=== PATIENT | male | born 1990 | race Caucasian/White ===

== ENCOUNTER → 2020-08-02 13:09 | Outpatient (BNVA) | payer MEDICAID, SELFPAY | PROVIDERS: PCP Internal Medicine; Referring Provider Internal Medicine; Visit Provider Nurse Practitioner Psychiatric/Mental Health | DX: F11.20 Opioid dependence, uncomplicated (principal); Z51.81 Encounter for therapeutic drug level monitoring | CPT/HCPCS: 80305; 99213 ==

== ENCOUNTER → 2020-08-23 13:29 | Outpatient (BNVA) | payer MEDICAID, SELFPAY | PROVIDERS: Visit Provider Nurse Practitioner Psychiatric/Mental Health | DX: F11.20 Opioid dependence, uncomplicated (principal) | CPT/HCPCS: 99211 ==

== ENCOUNTER → 2020-09-14 13:37 | Outpatient (BNVA) | payer MEDICAID, SELFPAY | PROVIDERS: Visit Provider Nurse Practitioner Psychiatric/Mental Health | DX: Z13.89 Encounter for screening for other disorder (principal) | CPT/HCPCS: 99211 ==

== ENCOUNTER → 2020-10-04 16:19 | Outpatient (BNVA) | payer MEDICAID, SELFPAY | PROVIDERS: Visit Provider Nurse Practitioner Psychiatric/Mental Health | DX: Z76.89 Persons encountering health services in other specified circumstances (principal) ==

== ENCOUNTER → 2020-10-25 13:32 | Outpatient (BNVA) | payer MEDICAID, SELFPAY | PROVIDERS: Visit Provider Nurse Practitioner Psychiatric/Mental Health | DX: Z76.89 Persons encountering health services in other specified circumstances (principal) ==

== ENCOUNTER → 2020-11-15 13:05 | Outpatient (BNVA) | payer MEDICAID, SELFPAY | PROVIDERS: Visit Provider Nurse Practitioner Psychiatric/Mental Health ==

== ENCOUNTER → 2020-11-22 13:18 | Outpatient (BNVA) | payer MEDICAID, SELFPAY | PROVIDERS: PCP Physician Assistant Medical; Visit Provider Nurse Practitioner Psychiatric/Mental Health | DX: F11.99 Opioid use, unspecified with unspecified opioid-induced disorder (principal) | CPT/HCPCS: 80305; 99212 ==

== ENCOUNTER → 2020-12-06 13:19 | Outpatient (BNVA) | payer MEDICAID, SELFPAY | PROVIDERS: Visit Provider Nurse Practitioner Psychiatric/Mental Health | DX: Z51.81 Encounter for therapeutic drug level monitoring (principal) | CPT/HCPCS: 80305; 99211 ==

== ENCOUNTER → 2020-12-20 13:35 | Outpatient (BNVA) | payer MEDICAID, SELFPAY | PROVIDERS: Visit Provider Nurse Practitioner Psychiatric/Mental Health | DX: Z51.81 Encounter for therapeutic drug level monitoring (principal) | CPT/HCPCS: 80305; 99211 ==

== ENCOUNTER → 2021-01-03 13:01 | Outpatient (BNVA) | payer MEDICAID, SELFPAY | PROVIDERS: Visit Provider Nurse Practitioner Psychiatric/Mental Health | DX: Z51.81 Encounter for therapeutic drug level monitoring (principal) ==

== ENCOUNTER → 2021-01-24 13:19 | Outpatient (BNVA) | payer MEDICAID, SELFPAY | PROVIDERS: Visit Provider Nurse Practitioner Psychiatric/Mental Health | DX: Z51.81 Encounter for therapeutic drug level monitoring (principal); F11.99 Opioid use, unspecified with unspecified opioid-induced disorder ==

== ENCOUNTER → 2021-02-13 15:20 | Outpatient (BNVA) | payer MEDICAID, SELFPAY | PROVIDERS: Visit Provider Nurse Practitioner Psychiatric/Mental Health | DX: Z51.81 Encounter for therapeutic drug level monitoring (principal) | CPT/HCPCS: 80305; 99211 ==

== ENCOUNTER → 2021-03-06 15:17 | Outpatient (BNVA) | payer MEDICAID, SELFPAY | PROVIDERS: Visit Provider Nurse Practitioner Psychiatric/Mental Health | DX: F11.99 Opioid use, unspecified with unspecified opioid-induced disorder (principal) | CPT/HCPCS: 80305; 99211 ==

== ENCOUNTER → 2021-03-28 13:46 | Outpatient (BNVA) | payer MEDICAID, SELFPAY | PROVIDERS: Visit Provider Nurse Practitioner Psychiatric/Mental Health ==

== ENCOUNTER → 2021-04-18 12:27 | Outpatient (BNVA) | payer MEDICAID, SELFPAY | PROVIDERS: Visit Provider Nurse Practitioner Psychiatric/Mental Health | DX: F11.99 Opioid use, unspecified with unspecified opioid-induced disorder (principal) | CPT/HCPCS: 99211 ==

== ENCOUNTER → 2021-05-09 13:31 | Outpatient (BNVA) | payer MEDICAID, SELFPAY | PROVIDERS: Visit Provider Nurse Practitioner Psychiatric/Mental Health | DX: F11.99 Opioid use, unspecified with unspecified opioid-induced disorder (principal); Z51.81 Encounter for therapeutic drug level monitoring | CPT/HCPCS: 80305; 99212 ==

== ENCOUNTER → 2021-06-06 13:29 | Outpatient (BNVA) | payer MEDICAID, SELFPAY | PROVIDERS: Visit Provider Nurse Practitioner Psychiatric/Mental Health | DX: Z51.81 Encounter for therapeutic drug level monitoring (principal); F11.90 Opioid use, unspecified, uncomplicated; Z79.899 Other long term (current) drug therapy | CPT/HCPCS: 80305; 99212 ==

== ENCOUNTER → 2021-06-27 13:42 | Outpatient (BNVA) | payer MEDICAID, SELFPAY | PROVIDERS: Visit Provider Nurse Practitioner Psychiatric/Mental Health | DX: Z51.81 Encounter for therapeutic drug level monitoring (principal); F11.99 Opioid use, unspecified with unspecified opioid-induced disorder | CPT/HCPCS: 80305; 99212 ==

== ENCOUNTER 2021-07-11 15:26 | Outpatient (REF) | payer MEDICAID, SELFPAY ==
[2021-07-11 16:33] LABS: Alanine Aminotransferase 17 U/L (0-40); Albumin Level 4.5 g/dL (3.5-5.0); Alkaline Phosphatase 126 U/L (39-117); Aspartate Amino Transferase 18 U/L (5-37); Bilirubin Direct 0.2 mg/dL (0.0-0.5); Bilirubin Total 0.6 mg/dL (0.0-1.0); Total Protein 6.6 g/dL (6.5-8.0)
== END 2021-07-11 15:27 | disposition home or self-care (01) ==
LOC: HO.LAB 15:26
PROVIDERS: Visit Provider Nurse Practitioner Psychiatric/Mental Health
DX: Z79.899 Other long term (current) drug therapy (principal)
CPT/HCPCS: 36415; 80076

== ENCOUNTER → 2021-07-18 13:46 | Outpatient (BNVA) | payer MEDICAID, SELFPAY | PROVIDERS: Visit Provider Nurse Practitioner Psychiatric/Mental Health | DX: Z51.81 Encounter for therapeutic drug level monitoring (principal); F11.90 Opioid use, unspecified, uncomplicated | CPT/HCPCS: 80305; 99212 ==

== ENCOUNTER → 2021-08-15 13:54 | Outpatient (BNVA) | payer MEDICAID, SELFPAY | PROVIDERS: Visit Provider Nurse Practitioner Psychiatric/Mental Health | DX: F11.20 Opioid dependence, uncomplicated (principal); Z51.81 Encounter for therapeutic drug level monitoring; Z79.899 Other long term (current) drug therapy | CPT/HCPCS: 80305; 99212 ==

== ENCOUNTER → 2021-08-22 14:58 | Outpatient (BNVA) | payer MEDICAID, SELFPAY | PROVIDERS: Visit Provider Nurse Practitioner Psychiatric/Mental Health | DX: F11.20 Opioid dependence, uncomplicated (principal); Z51.81 Encounter for therapeutic drug level monitoring; Z79.899 Other long term (current) drug therapy | CPT/HCPCS: 80305; 99212 ==

== ENCOUNTER → 2021-08-29 14:48 | Outpatient (BNVA) | payer MEDICAID, SELFPAY | PROVIDERS: Visit Provider Nurse Practitioner Psychiatric/Mental Health | DX: Z51.81 Encounter for therapeutic drug level monitoring (principal); F11.90 Opioid use, unspecified, uncomplicated | CPT/HCPCS: 80305; 99212 ==

== ENCOUNTER → 2021-09-05 15:34 | Outpatient (BNVA) | payer MEDICAID, SELFPAY | PROVIDERS: Visit Provider Nurse Practitioner Psychiatric/Mental Health | DX: Z51.81 Encounter for therapeutic drug level monitoring (principal); F11.90 Opioid use, unspecified, uncomplicated | CPT/HCPCS: 80305; 99212 ==

== ENCOUNTER → 2021-10-03 15:46 | Outpatient (BNVA) | payer MEDICAID, SELFPAY | PROVIDERS: Visit Provider Nurse Practitioner Psychiatric/Mental Health | DX: Z51.81 Encounter for therapeutic drug level monitoring (principal); F11.20 Opioid dependence, uncomplicated | CPT/HCPCS: 80305; 99212 ==

== ENCOUNTER → 2021-11-28 14:57 | Outpatient (BNVA) | payer MEDICAID, SELFPAY | PROVIDERS: Visit Provider Nurse Practitioner Psychiatric/Mental Health | DX: Z51.81 Encounter for therapeutic drug level monitoring (principal); F11.20 Opioid dependence, uncomplicated | CPT/HCPCS: 80305; 99211 ==

== ENCOUNTER → 2021-12-26 11:34 | Outpatient (BNVA) | payer MEDICAID, SELFPAY | PROVIDERS: Visit Provider Nurse Practitioner Psychiatric/Mental Health | DX: F11.99 Opioid use, unspecified with unspecified opioid-induced disorder (principal); F90.9 Attention-deficit hyperactivity disorder, unspecified type; Z87.891 Personal history of nicotine dependence | CPT/HCPCS: 80305; 99212 ==

== ENCOUNTER → 2022-01-23 11:30 | Outpatient (BNVA) | payer MEDICAID, SELFPAY | PROVIDERS: Visit Provider Nurse Practitioner Psychiatric/Mental Health | DX: F11.20 Opioid dependence, uncomplicated (principal); Z51.81 Encounter for therapeutic drug level monitoring; Z79.899 Other long term (current) drug therapy | CPT/HCPCS: 80305; 99212 ==

== ENCOUNTER → 2022-02-20 11:51 | Outpatient (BNVA) | payer MEDICAID, SELFPAY | PROVIDERS: Visit Provider Nurse Practitioner Psychiatric/Mental Health | DX: F11.20 Opioid dependence, uncomplicated (principal) | CPT/HCPCS: 99212 ==

== ENCOUNTER 2022-03-25 12:43 | Emergency (ER) | payer MEDICAID, SELFPAY ==
[2022-03-25 13:28] VITALS: BP 125/76; PULSE 80; RESP 16; TEMP 35.6; O2SAT 100; BMI 22.8
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
[2022-03-25] MEDS: Lidocaine HCl 2 % MPF 5 ML VIAL SUBCUT (14:18)
[2022-03-25] MEDS: Diphth,Pertus(ACell),Tet Adult 0.5 ML SYRINGE IM (14:18)
== END 2022-03-25 15:13 | disposition home or self-care (01) ==
PROVIDERS: Emergency Provider Emergency Medicine
DX: S81.811A Laceration without foreign body, right lower leg, initial encounter (principal); V18.0XXA Pedal cycle driver injured in noncollision transport accident in nontraffic accident, initial encounter; Y93.55 Activity, bike riding; Y92.414 Local residential or business street as the place of occurrence of the external cause; Y99.9 Unspecified external cause status
CPT/HCPCS: 12034; 90471; 90715; 99284

== ENCOUNTER 2022-03-27 16:03 | Emergency (ER) | payer MEDICAID, SELFPAY ==
[2022-03-27 16:15] VITALS: BP 128/87; PULSE 100; RESP 18; TEMP 36.8; O2SAT 97; BMI 22.8
[2022-03-27 20:07] VITALS: BP 100/63; PULSE 67; RESP 18; TEMP 37.2; O2SAT 98
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
== END 2022-03-27 22:48 | disposition home or self-care (01) ==
PROVIDERS: Emergency Provider Emergency Medicine; PCP Physician Assistant
DX: T81.33XA Disruption of traumatic injury wound repair, initial encounter (principal)
CPT/HCPCS: 12001; 99284

== ENCOUNTER 2022-04-03 12:32 | Emergency (ER) | payer MEDICAID, SELFPAY ==
[2022-04-03 12:35] VITALS: BP 125/85; PULSE 85; RESP 16; TEMP 36.6; O2SAT 98; BMI 22.1
--- NOTE | 2022-04-03 16:52 | ED_ITS ---
HPI - Wound/Laceration General Chief Complaint: Wound/Laceration Stated Complaint: stiches removed Time Seen by Provider: 04/03/22 14:04 Source: patient Mode of arrival: ambulatory Limitations: no limitations History of Present Illness HPI narrative: 31-year-old male presents for suture removal to the right lower extremity. Onset (ago): day(s) (9) Extremity Location: right: lower leg Place: outdoors Patient tetanus UTD: Yes Context: accidental Associated symptoms: none Related Data Home Medications Medication Instructions Recorded Confirmed dextroamphetamine-amphetamine ER 25 mg PO BID 06/06/21 06/27/21 25 mg 24hr capsule,extend release (Adderall XR) Previous Rx's Medication Instructions Recorded nicotine 14 mg/24 hr daily 1 patch transdermal DAILY #28 08/22/21 transdermal patch patches nicotine (polacrilex) 4 mg buccal 4 mg buccal Q4-8H PRN nicotine 10/03/21 lozenge cravings #96 ea buprenorphine 12 mg-naloxone 3 mg 1 film sublingual DAILY #21 ea 04/03/22 sublingual film (Suboxone) hydroxyzine HCl 50 mg tablet 50 mg PO BEDTIME #14 tabs 04/03/22 Allergies Allergy/AdvReac Type Severity Reaction Status Date / Time No Known Allergies Allergy Verified 01/23/22 11:32 [No Known Allergies*] Review of Systems Review of Systems: Constitutional: No Fever, No Chills ENT/Mouth: No Ear Pain, No Hoarseness, No sore throat Eyes: No Eye Pain, No Swelling, No Redness, No Foreign Body Cardiovascular: No Chest Pain, No SOB Respiratory: No Cough, No Dyspnea Gastrointestinal: No Nausea, No Vomiting, No Diarrhea, No abdominal Pain Genitourinary: No Dysuria, No Hematuria Musculoskeletal: positive joint pain, No Myalgias, No Joint Swelling Skin: Suture removal to right lower extremity, No rash Neuro: No Weakness, No Numbness, No Paresthesias, No Loss of Consciousness, No Dizziness, No Headache Psych: No Anxiety/Panic, No Depression Heme/Lymph: no easy bruising, no Lymphadenopathy Endocrine: No Polyuria, No Polydipsia Yes all other systems are reviewed and are negative PMFSH Past Medical History Attestation statement: The following information was validated with the patient. Source: old records reviewed Medical History ADHD Family History Family History Mother Diabetes Alcohol abuse Father Stroke Social History Social History Household Members Other:: partner Housing: Apartment Alcohol intake: never Patient Tobacco Use Status: Former Tobacco user Substance Use Type: Marijuana Advance Directives: No Advance Directives Information Provided: No Physical Exam Vital Signs: Vital Signs: Last Vital Signs Temp 98 F 04/03/22 12:35 Pulse 85 04/03/22 12:35 Resp 16 04/03/22 12:35 BP 125/85 04/03/22 12:35 Pulse Ox 98 04/03/22 12:35 O2 Del Method 04/03/22 12:35 BMI result Body Mass Index 22.1 Appearance: Alert. Oriented X3. No acute distress. Eyes: Pupils equal, round and reactive to light. ENT: Pharynx normal. Neck: Normal inspection. Neck supple. CVS: Normal heart rate and rhythm. Pulses normal. Respiratory: No respiratory distress. Breath sounds normal. Abdomen: Soft and nontender. Skin: Wound dehiscence to the lateral aspects of the laceration, 4 sutures removed from the well-approximated center of the laceration. No indication of infection. No erythema or warmth to touch. Skin warm and dry. Normal skin color. Normal skin turgor. Extremities: No lower extremity edema. Gait well-balanced and well coordinated. Neuro: No motor deficit. No sensory deficit. Cranial nerves 2-12 intact. Course Course Course Narrative: 31-year-old male presents for suture removal to right lower extremity. Wound dehiscence to the lateral aspects of the wound, patient did remove 5 sutures on his own, 4 sutures in the center. Center of the wound is well-approximated. No indication of infection, no erythema or purulent drainage from the site. Sutures removed without difficulty. Discharge instructions for mederma scar ointment and bacitracin as needed. Patient verbalized understanding of and agrees to plan of care to discharge home. Verbalized understanding of signs and symptoms indicating need for emergent intervention MDM - Wound/Laceration Differential Diagnosis Differential diagnosis: Likely laceration Medical Records Attestation: I reviewed the patient's medical records. Discharge Plan Discharge Clinical Impression: Visit for suture removal Patient Disposition: Home, Self-Care Instructions: Stitches Removal (ED) Additional Instructions: You were evaluated for suture removal. Sutures were removed without difficulty. You may consider using Mederma scar or ointment to reduce scarring. Thank you for choosing this emergency department for evaluation. Please f ollow-up with primary care physician as needed. Return to the emergency department for any new, concerning, or worsening symptoms. Prescriptions: No Action dextroamphetamine-amphetamine [Adderall XR] 25 mg capsule,extended release 24hr 25 mg PO BID nicotine 14 mg/24 hr patch 24 hour 1 patch transdermal DAILY Qty: 28 3RF nicotine (polacrilex) 4 mg lozenge 4 mg buccal Q4-8H PRN (Reason: nicotine cravings) Qty: 96 3RF buprenorphine-naloxone [Suboxone] 12-3 mg film 1 film sublingual DAILY Qty: 21 1RF hydroxyzine HCl 50 mg tablet 50 mg PO BEDTIME Qty: 14 0RF
== END 2022-04-03 17:24 | disposition home or self-care (01) ==
PROVIDERS: Emergency Provider Emergency Medicine; PCP Family Medicine
DX: Z48.02 Encounter for removal of sutures (principal); S81.811D Laceration without foreign body, right lower leg, subsequent encounter; W45.8XXD Other foreign body or object entering through skin, subsequent encounter
CPT/HCPCS: 80305; 99212; 99282; 99283

== ENCOUNTER → 2022-05-08 08:44 | Outpatient (BNVA) | payer MEDICAID, SELFPAY | PROVIDERS: PCP Family Medicine; Visit Provider Nurse Practitioner Psychiatric/Mental Health | DX: F11.20 Opioid dependence, uncomplicated (principal) | CPT/HCPCS: 99212 ==

== ENCOUNTER → 2022-05-15 11:55 | Outpatient (BNVA) | payer MEDICAID, SELFPAY | PROVIDERS: PCP Physician Assistant; Visit Provider Nurse Practitioner Psychiatric/Mental Health | DX: Z51.81 Encounter for therapeutic drug level monitoring (principal); F11.20 Opioid dependence, uncomplicated | CPT/HCPCS: 80305; 99212 ==

== ENCOUNTER → 2022-05-28 08:37 | Outpatient (BNVA) | payer MEDICAID, SELFPAY | PROVIDERS: PCP Physician Assistant; Visit Provider Nurse Practitioner Psychiatric/Mental Health | DX: F11.20 Opioid dependence, uncomplicated (principal); Z51.81 Encounter for therapeutic drug level monitoring; Z79.899 Other long term (current) drug therapy | CPT/HCPCS: 99212 ==

== ENCOUNTER → 2022-06-12 10:53 | Outpatient (BNVA) | payer MEDICAID, SELFPAY | PROVIDERS: PCP Physician Assistant; Visit Provider Nurse Practitioner Psychiatric/Mental Health | DX: F11.20 Opioid dependence, uncomplicated (principal) | CPT/HCPCS: 99212 ==

== ENCOUNTER → 2022-06-23 11:33 | Outpatient (BNVA) | payer MEDICAID, SELFPAY | PROVIDERS: PCP Physician Assistant; Visit Provider Nurse Practitioner Psychiatric/Mental Health | DX: Z51.81 Encounter for therapeutic drug level monitoring (principal); F11.20 Opioid dependence, uncomplicated | CPT/HCPCS: 80305; 99212 ==

== ENCOUNTER → 2022-07-03 11:03 | Outpatient (BNVA) | payer MEDICAID, SELFPAY | PROVIDERS: PCP Physician Assistant; Visit Provider Nurse Practitioner Psychiatric/Mental Health | DX: F11.20 Opioid dependence, uncomplicated (principal); Z51.81 Encounter for therapeutic drug level monitoring; Z79.899 Other long term (current) drug therapy | CPT/HCPCS: 80305; 99212 ==

== ENCOUNTER → 2022-07-10 11:05 | Outpatient (BNVA) | payer MEDICAID, SELFPAY | PROVIDERS: PCP Physician Assistant; Visit Provider Nurse Practitioner Psychiatric/Mental Health | DX: Z51.81 Encounter for therapeutic drug level monitoring (principal); F11.20 Opioid dependence, uncomplicated | CPT/HCPCS: 80305; 99212 ==

== ENCOUNTER → 2022-07-17 11:41 | Outpatient (BNVA) | payer MEDICAID, SELFPAY | PROVIDERS: PCP Physician Assistant; Visit Provider Nurse Practitioner Psychiatric/Mental Health | DX: Z51.81 Encounter for therapeutic drug level monitoring (principal); F11.20 Opioid dependence, uncomplicated | CPT/HCPCS: 80305; 99212 ==

== ENCOUNTER → 2022-07-31 11:02 | Outpatient (BNVA) | payer MEDICAID, SELFPAY | PROVIDERS: PCP Physician Assistant; Visit Provider Nurse Practitioner Psychiatric/Mental Health | DX: F11.20 Opioid dependence, uncomplicated (principal); Z51.81 Encounter for therapeutic drug level monitoring; Z79.899 Other long term (current) drug therapy | CPT/HCPCS: 80305; 99212 ==

== ENCOUNTER → 2022-08-14 11:05 | Outpatient (BNVA) | payer MEDICAID, SELFPAY | PROVIDERS: PCP Physician Assistant; Visit Provider Nurse Practitioner Psychiatric/Mental Health | DX: Z51.81 Encounter for therapeutic drug level monitoring (principal); F11.20 Opioid dependence, uncomplicated | CPT/HCPCS: 80305; 99212 ==

== ENCOUNTER → 2022-08-21 11:05 | Outpatient (BNVA) | payer MEDICAID, SELFPAY | PROVIDERS: PCP Physician Assistant; Visit Provider Nurse Practitioner Psychiatric/Mental Health | DX: Z51.81 Encounter for therapeutic drug level monitoring (principal); F11.20 Opioid dependence, uncomplicated | CPT/HCPCS: 99212 ==

== ENCOUNTER → 2022-09-01 11:05 | Outpatient (BNVA) | payer MEDICAID, SELFPAY | PROVIDERS: PCP Physician Assistant; Visit Provider Nurse Practitioner Psychiatric/Mental Health | DX: Z51.81 Encounter for therapeutic drug level monitoring (principal); F11.20 Opioid dependence, uncomplicated | CPT/HCPCS: 80305; 99212 ==

== ENCOUNTER → 2022-09-11 11:04 | Outpatient (BNVA) | payer MEDICAID, SELFPAY | PROVIDERS: PCP Physician Assistant; Visit Provider Nurse Practitioner Psychiatric/Mental Health | DX: Z51.81 Encounter for therapeutic drug level monitoring (principal); F11.20 Opioid dependence, uncomplicated | CPT/HCPCS: 99212 ==

== ENCOUNTER → 2022-10-02 11:03 | Outpatient (BNVA) | payer MEDICAID, SELFPAY | PROVIDERS: PCP Physician Assistant; Visit Provider Nurse Practitioner Psychiatric/Mental Health | DX: F11.20 Opioid dependence, uncomplicated (principal) | CPT/HCPCS: 80305; 99212 ==

== ENCOUNTER → 2022-10-16 10:35 | Outpatient (BNVA) | payer MEDICAID, SELFPAY | PROVIDERS: PCP Physician Assistant; Visit Provider Nurse Practitioner Psychiatric/Mental Health | DX: Z51.81 Encounter for therapeutic drug level monitoring (principal); F11.20 Opioid dependence, uncomplicated | CPT/HCPCS: 99212 ==

== ENCOUNTER → 2022-11-06 10:26 | Outpatient (BNVA) | payer MEDICAID, SELFPAY | PROVIDERS: PCP Physician Assistant; Visit Provider Nurse Practitioner Psychiatric/Mental Health | DX: Z51.81 Encounter for therapeutic drug level monitoring (principal); F11.20 Opioid dependence, uncomplicated | CPT/HCPCS: 80305; 99212 ==

== ENCOUNTER → 2022-11-27 15:52 | Outpatient (BNVA) | payer MEDICAID, SELFPAY | PROVIDERS: PCP Physician Assistant; Visit Provider Nurse Practitioner Psychiatric/Mental Health | DX: F11.20 Opioid dependence, uncomplicated (principal); F90.9 Attention-deficit hyperactivity disorder, unspecified type; Z51.81 Encounter for therapeutic drug level monitoring; Z79.899 Other long term (current) drug therapy | CPT/HCPCS: 80305; 99212 ==

== ENCOUNTER → 2022-12-18 11:33 | Outpatient (BNVA) | payer MEDICAID, SELFPAY | PROVIDERS: PCP Physician Assistant; Visit Provider Nurse Practitioner Psychiatric/Mental Health | DX: F11.20 Opioid dependence, uncomplicated (principal); Z51.81 Encounter for therapeutic drug level monitoring; Z79.899 Other long term (current) drug therapy | CPT/HCPCS: 80305; 99212 ==

== ENCOUNTER → 2023-01-08 11:37 | Outpatient (BNVA) | payer MEDICAID, SELFPAY | PROVIDERS: PCP Physician Assistant; Visit Provider Nurse Practitioner Psychiatric/Mental Health | DX: Z51.81 Encounter for therapeutic drug level monitoring (principal); F11.20 Opioid dependence, uncomplicated | CPT/HCPCS: 80305; 99212 ==

== ENCOUNTER 2023-01-19 02:44 | Emergency (ER) | payer MEDICAID, SELFPAY ==
[2023-01-19 03:02] VITALS: BP 106/61; PULSE 76; RESP 16; TEMP 36.1; O2SAT 98; BMI 22.8
--- NOTE | 2023-01-19 03:35 | ED_ITS ---
HPI - Dental/Oral General Chief complaint: Dental/Oral Stated complaint: tooth infection Time Seen by Provider: 01/19/23 03:32 History of Present Illness HPI Narrative: Patient is a 32-year-old male presents today with having toothache on left lower molar. There is no change in voice. There is no change in being able to eat. Patient from home. Symptoms been ongoing for at least 2 weeks Teeth map: 1. Pain in left lower molar Related Data Home Medications Medication Instructions Recorded Confirmed dextroamphetamine-amphetamine ER 25 mg PO BID 06/06/21 06/27/21 25 mg 24hr capsule,extend release (Adderall XR) Previous Rx's Medication Instructions Recorded nicotine 14 mg/24 hr daily 1 patch transdermal DAILY #28 08/22/21 transdermal patch patches nicotine (polacrilex) 4 mg buccal 4 mg buccal Q4-8H PRN nicotine 10/03/21 lozenge cravings #96 ea hydroxyzine HCl 50 mg tablet 50 mg PO BEDTIME #14 tabs 04/03/22 digital therapeutics, OUD (Reset-O #1 ea 12/18/22 Digital Jp (OUD)) buprenorphine 12 mg-naloxone 3 mg 1 film buccal Q24H #21 ea 01/08/23 sublingual film (Suboxone) ibuprofen 400 mg tablet 400 mg PO Q6H PRN pain #20 tabs 01/19/23 penicillin V potassium 500 mg 500 mg PO TID 7 days #21 tabs 01/19/23 tablet Allergies Allergy/AdvReac Type Severity Reaction Status Date / Time No Known Allergies Allergy Verified 01/08/23 11:46 [No Known Allergies*] Review of Systems Review of Systems: No fever no chills Yes all other systems are reviewed and are negative [facility] Past Medical History Medical History ADHD Family History Family History Mother Diabetes Alcohol abuse Father Stroke Social History Social History Household Members Other:: partner Housing: Apartment Alcohol intake: never Patient Tobacco Use Status: Former Tobacco user Substance Use Type: Marijuana Physical Exam Vital Signs: Vital Signs: Last Vital Signs Temp 97 F 01/19/23 03:02 Pulse 76 01/19/23 03:02 Resp 16 01/19/23 03:02 BP 106/61 01/19/23 03:02 Pulse Ox 98 01/19/23 03:02 BMI result Body Mass Index 22.8 Appearance: Alert. Oriented X3. No acute distress. Eyes: Pupils equal, round and reactive to light. ENT: Pharynx normal. Positive cavity in left lower molar there is no gross abscess palpable. Neck: Normal inspection. Neck supple. No lymph nodes noted. No crepitus CVS: Normal heart rate and rhythm. Pulses normal. Normal S1 and S2 Respiratory: No respiratory distress. Breath sounds normal. No Wheezing. No r ales Abdomen: Soft and nontender. No rigidity. No distention. good BS x4 Skin: Skin warm and dry. Normal skin color. Normal skin turgor. Extremities: No lower extremity edema. Neurovascular intact to all extremities. No Lacerations. No Rash Neuro: Oriented X 3. No motor deficit. No sensory deficit. Moving all extermities. No slurred speech Medical Decision Making Differential Diagnosis Positive dental pain likely secondary to cavity. There is no gross dental abscess palpable. Patient fair appearing. Will give dose of penicillin. Also give Motrin for pain as patient had a previous narcotic abuse history. In stable condition. Prescription Management I considered prescription management with: Pain Medication and Antibiotic Chronic Conditions Previous substance abuse history Discharge Plan Discharge Clinical Impression: Dental caries Patient Disposition: Home, Self-Care Instructions: Toothache (ED) Prescriptions: New ibuprofen 400 mg tablet 400 mg PO Q6H PRN (Reason: pain) Qty: 20 0RF penicillin V potassium 500 mg tablet 500 mg PO TID 7 Days Qty: 21 0RF No Action dextroamphetamine-amphetamine [Adderall XR] 25 mg capsule,extended release 24hr 25 mg PO BID nicotine 14 mg/24 hr patch 24 hour 1 patch transdermal DAILY Qty: 28 3RF (DME) Reset-O Digital Jp (OUD) Misc See Rx Instructions .MEDSUPPLY Qty: 1 0RF Rx Instructions: As directed (3-4 times a week) 84 days buprenorphine-naloxone [Suboxone] 12-3 mg film 1 film buccal Q24H Qty: 21 0RF nicotine (polacrilex) 4 mg lozenge 4 mg buccal Q4-8H PRN (Reason: nicotine cravings) Qty: 96 3RF hydroxyzine HCl 50 mg tablet 50 mg PO BEDTIME Qty: 14 0RF Referrals: [facility] [Provider Group] - 01/20/23 Physician,Unknown J [Primary Care Provider] - (Please follow-up with your dentist on an outpatient basis.)
[2023-01-19] MEDS: Ibuprofen 400 MG TABLET PO (03:45)
[2023-01-19] MEDS: Penicillin V Potassium 250 MG TABLET 500 MG PO (03:46)
== END 2023-01-19 04:26 | disposition home or self-care (01) ==
PROVIDERS: Emergency Provider Emergency Medicine Emergency Medical Services
DX: K02.9 Dental caries, unspecified (principal)
CPT/HCPCS: 99283

== ENCOUNTER → 2023-04-13 14:23 | Outpatient (BNVA) | payer MEDICAID, SELFPAY | PROVIDERS: Visit Provider Nurse Practitioner Psychiatric/Mental Health | DX: Z51.81 Encounter for therapeutic drug level monitoring (principal); F11.29 Opioid dependence with unspecified opioid-induced disorder | CPT/HCPCS: 80305; 99212 ==

== ENCOUNTER → 2023-04-20 16:03 | Outpatient (BNVA) | payer MEDICAID, SELFPAY | PROVIDERS: Visit Provider Nurse Practitioner Psychiatric/Mental Health | DX: Z51.81 Encounter for therapeutic drug level monitoring (principal); F11.20 Opioid dependence, uncomplicated | CPT/HCPCS: 99212 ==

== ENCOUNTER 2023-05-04 14:12 | Outpatient (AMB) | payer MEDICAID, SELFPAY ==
--- NOTE | 2023-05-04 14:13 | A.OFFVIS_ITS ---
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 Would like to hold here for now. Patient appearing quite thin, reporting decreased appetite. 140lbs--acknowledges this is the lowest he has weighed PFSH Medical History ADHD Family History Mother Diabetes Alcohol abuse Father Stroke Social History Household Members Other:: partner Housing: Apartment Alcohol intake: never Patient Tobacco Use Status: Former Tobacco user Substance Use Type: Marijuana Review of Systems Const Reports as per HPI and Reports no additional complaints Physical Exam Vital Signs: Last Vital Signs Pulse 85 05/04/23 14:23 BP 124/72 05/04/23 14:23 Pulse Ox 97 05/04/23 14:23 Oxygen Delivery Method Room Air 05/04/23 14:23 Const General: cooperative and alert Nutritional Appearance: thin and underweight Orientation/consciousness: patient oriented x3 Limitations: no limitations Skin General skin exam: no rashes or lesions noted Neuro General: patient oriented x3 Psych Appearance: well kempt Mental Status: mental status grossly normal Speech and movement: Clear speech present Affect: normal affect Attitude: cooperative Thought process: Normal thought process present Thought content: Normal thought content present Insight: Good insight present (Psych) Judgement: Good judgement present (Psych) Assessment & Plan Assessment & Plan (1) Opioid use disorder: Code(s): F11.99 - Opioid use, unspecified with unspecified opioid-induced disorder Plan: * continue suboxone at current dose * follow up 3 weeks Medications: New buprenorphine-naloxone 4-1 mg (Suboxone) 1 film buccal Q24H 21 ea 0RF Discontinued buprenorphine-naloxone 8-2 mg (Suboxone) Discontinued Reason: Patient Completed Course 1 film buccal DAILY 7 ea 0RF Coding Level of Care Code Est Pt Level 3 (57509) Diagnoses Opioid use disorder F11.99
[2023-05-04 14:23] VITALS: BP 124/72; PULSE 85; O2SAT 97
== END 2023-05-04 14:55 | disposition home or self-care (01) ==
LOC: HO.HCC 14:12
PROVIDERS: PCP Physician Assistant; Visit Provider Nurse Practitioner Psychiatric/Mental Health
DX: F11.99 Opioid use, unspecified with unspecified opioid-induced disorder (principal)
CPT/HCPCS: 99213

== ENCOUNTER → 2023-05-04 14:12 | Outpatient (BNVA) | payer MEDICAID, SELFPAY | PROVIDERS: PCP Physician Assistant; Visit Provider Nurse Practitioner Psychiatric/Mental Health | DX: Z51.81 Encounter for therapeutic drug level monitoring (principal); F11.20 Opioid dependence, uncomplicated | CPT/HCPCS: 99213 ==

== ENCOUNTER 2023-05-25 16:17 | Outpatient (AMB) | payer MEDICAID, SELFPAY ==
--- NOTE | 2023-05-25 16:19 | MHC.OFFVIS ---
Intake Vital Signs 05/25/23 16:25 BP 124/86 Blood Pressure Location Lt radial Position Sitting Pulse 78 Pulse Source Pulse Oximeter Pulse Oximetry (%) 98 Oxygen Delivery Method Room Air Intake Visit Reasons: mat visit Intake Note: the patient presents for a mat visit Manager Customs Required: No Allergies No Known Allergies [No Known Allergies*] Allergy (Verified 05/25/23 16:26) Do you need a note to return to daycare/school/sports/work: No HPI mat visit HPI Details Patient presents for OUD treatment follow up Taking 2mg daily Reports doing well with recovery. 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 Concerned about his weight loss, does not feel that there has been any change in his eating habits. [facility] Medical History ADHD Family History Mother Diabetes Alcohol abuse Father Stroke Social History Household Members Other:: partner Housing: Apartment Alcohol intake: never Patient Tobacco Use Status: Former Tobacco user Substance Use Type: Marijuana Review of Systems Const Reports as per HPI and Reports no additional complaints Physical Exam Vital Signs: Last Vital Signs Pulse 78 05/25/23 16:25 BP 124/86 05/25/23 16:25 Pulse Ox 98 05/25/23 16:25 Oxygen Delivery Method Room Air 05/25/23 16:25 Const General: cooperative and alert Nutritional Appearance: thin and underweight Orientation/consciousness: patient oriented x3 Limitations: no limitations Skin General skin exam: no rashes or lesions noted Neuro General: patient oriented x3 Psych Appearance: well kempt Mental Status: mental status grossly normal Speech and movement: Clear speech present Affect: normal affect Attitude: cooperative Thought process: Normal thought process present Thought content: Normal thought content present Insight: Good insight present (Psych) Judgement: Good judgement present (Psych) Assessment & Plan Assessment & Plan (1) Opioid use disorder: Code(s): F11.99 - Opioid use, unspecified with unspecified opioid-induced disorder Plan: continue suboxone at 2 mg daily follow up 3 weeks Medications: New buprenorphine-naloxone 2-0.5 mg (Suboxone) 1 film buccal DAILY 21 ea 0RF Discontinued buprenorphine-naloxone 4-1 mg (Suboxone) Discontinued Reason: None 1 film buccal Q24H 21 ea 0RF Coding Level of Care Code Est Pt Level 3 (80052) Diagnoses Opioid use disorder F11.99
[2023-05-25 16:25] VITALS: BP 124/86; PULSE 78; O2SAT 98
== END 2023-05-25 17:00 | disposition home or self-care (01) ==
LOC: HO.HCC 16:17
PROVIDERS: PCP Physician Assistant; Visit Provider Nurse Practitioner Psychiatric/Mental Health
DX: F11.99 Opioid use, unspecified with unspecified opioid-induced disorder (principal)
CPT/HCPCS: 99213

== ENCOUNTER → 2023-05-25 16:17 | Outpatient (BNVA) | payer MEDICAID, SELFPAY | PROVIDERS: PCP Physician Assistant; Visit Provider Nurse Practitioner Psychiatric/Mental Health | DX: Z51.81 Encounter for therapeutic drug level monitoring (principal); F11.20 Opioid dependence, uncomplicated | CPT/HCPCS: 99213 ==

== ENCOUNTER 2023-05-26 14:59 | Outpatient (REF) | payer MEDICAID, SELFPAY ==
[2023-05-26 15:10] LABS: MANUAL DIFF FLAG NO
[2023-05-26 15:28] LABS: Basophils Absolute Auto 0.1 X10*3/uL (0.0-0.2); Basophils Percent Auto 0.7 % (0-2); Eosinophils Absolute Auto 0.2 X10*3/uL (0.0-0.4); Eosinophils Percent Auto 2.7 % (0-4); Hematocrit 38.9 % (42.0-52.0); Hemoglobin 12.8 g/dl (14.0-18.0); Imm Gran Abs Auto 0.02 X10*3/uL (0.00-0.03); Imm Gran Pct Auto 0.3 % (0.0-0.4); Lymphocytes Absolute Auto 1.7 X10*3/uL (1.2-4.9); Mean Corpuscular HGB Conc 32.9 g/dl (31.0-36.0); Mean Corpuscular Hemoglobin 29.9 pg (27.0-33.0); Mean Corpuscular Volume 90.9 fL (80.0-98.0); Mean Platelet Volume 9.4 fL (9.4-12.4); Monocytes Absolute Auto 0.5 X10*3/uL (0.1-1.2); Monocytes Percent Auto 6.5 % (2-11); Neutrophils Absolute Auto 4.9 x10*3/uL (2.0-8.3); Neutrophils Percent Auto 66.8 % (45-73); Platelet Count 310 X10*3/uL (160-400); Red Blood Count 4.28 X10*6/uL (4.60-5.80); Red Cell Distribution Width 13.1 % (11.0-16.0); White Blood Count 7.3 X10*3/uL (4.8-10.8)
[2023-05-26 16:29] LABS: Alanine Aminotransferase 19 U/L (0-40); Albumin Level 4.3 g/dL (3.5-5.0); Alkaline Phosphatase 112 U/L (39-117); Anion Gap 13 (12-20); Aspartate Amino Transferase 21 U/L (5-37); Bilirubin Total 0.3 mg/dL (0.0-1.0); Blood Urea Nitrogen 17 mg/dL (9-16); Calcium 9.1 mg/dL (8.4-10.2); Carbon Dioxide 23 mmol/L (22-29); Chloride 109 mmol/L (96-108); Estimated Glomerular Filt Rate > 60; Glucose Random 96 mg/dL (60-115); Potassium 4.4 mmol/L (3.3-5.1); Sodium 141 mmol/L (135-145); Total Protein 6.5 g/dL (6.5-8.0)
== END 2023-05-26 15:00 | disposition home or self-care (01) ==
LOC: HO.LAB 14:59
PROVIDERS: Visit Provider Nurse Practitioner Psychiatric/Mental Health
DX: Z79.899 Other long term (current) drug therapy (principal)
CPT/HCPCS: 36415; 80053; 85025

== ENCOUNTER 2023-06-15 11:27 | Outpatient (AMB) | payer MEDICAID, SELFPAY ==
[2023-06-15 11:45] VITALS: BP 110/72; PULSE 93; O2SAT 97
--- NOTE | 2023-06-15 11:45 | A.OFFVIS_ITS ---
Intake Vital Signs 06/15/23 11:45 BP 110/72 Blood Pressure Location Lt radial Position Sitting Pulse 93 Pulse Source Pulse Oximeter Pulse Oximetry (%) 97 Oxygen Delivery Method Room Air Intake Visit Reasons: mat visit Intake Note: the patient presents for a mat visit Education Liaison Required: No Allergies No Known Allergies [No Known Allergies*] Allergy (Verified 06/15/23 11:46) Do you need a note to return to daycare/school/sports/work: No HPI mat visit HPI Details Patient presents for follow up weight now at 141 ---previously at 01:38 tolerating iron and multivitamin. Still appears quite thin/underweight. Patient denies any fatigue, reporting ?I feel the best I have ever felt?. suboxone dose at 1mg with plan to decrease by another 1/2mg Denies any concerns related to recovery PFSH Medical History ADHD Family History Mother Diabetes Alcohol abuse Father Stroke Social History Household Members Other:: partner Housing: Apartment Alcohol intake: never Patient Tobacco Use Status: Former Tobacco user Substance Use Type: Marijuana Review of Systems Const Reports as per HPI and Reports no additional complaints Physical Exam Vital Signs: Last Vital Signs Pulse 93 06/15/23 11:45 BP 110/72 06/15/23 11:45 Pulse Ox 97 06/15/23 11:45 Oxygen Delivery Method Room Air 06/15/23 11:45 Const General: cooperative and alert Nutritional Appearance: thin and underweight Orientation/consciousness: patient oriented x3 Limitations: no limitations Skin General skin exam: no rashes or lesions noted Neuro General: patient oriented x3 Psych Appearance: well kempt Mental Status: mental status grossly normal Speech and movement: Clear speech present Affect: normal affect Attitude: cooperative Thought process: Normal thought process present Thought content: Normal thought content present Insight: Good insight present (Psych) Judgement: Good judgement present (Psych) Assessment & Plan Assessment & Plan (1) Opioid use disorder: Code(s): F11.99 - Opioid use, unspecified with unspecified opioid-induced disorder Plan: * Continue Suboxone 1 mg daily * Patient to continue taper as tolerated * Risk reduction discussion * Follow-up 4 weeks Medications: Discontinued penicillin V potassium Discontinued Reason: Patient Completed Course 500 mg PO TID 7 days 21 tabs 0RF digital therapeutics, OUD (Reset-O Digital Jp (OUD)) Discontinued Reason: Patient Completed Course As directed (3-4 times a week) 84 days 1 ea 0RF OUD F11.10 - Opioid abuse, uncomplicated Coding Level of Care Code Est Pt Level 3 (08074) Diagnoses Opioid use disorder F11.99
== END 2023-06-15 14:54 | disposition home or self-care (01) ==
LOC: HO.HCC 11:27
PROVIDERS: PCP Physician Assistant; Visit Provider Nurse Practitioner Psychiatric/Mental Health
DX: F11.99 Opioid use, unspecified with unspecified opioid-induced disorder (principal)
CPT/HCPCS: 99213

== ENCOUNTER → 2023-06-15 11:27 | Outpatient (BNVA) | payer MEDICAID, SELFPAY | PROVIDERS: PCP Physician Assistant; Visit Provider Nurse Practitioner Psychiatric/Mental Health | DX: F11.10 Opioid abuse, uncomplicated (principal); Z51.81 Encounter for therapeutic drug level monitoring; Z79.899 Other long term (current) drug therapy | CPT/HCPCS: 99213 ==

== ENCOUNTER 2023-07-31 14:09 | Outpatient (AMB) | payer MEDICAID, SELFPAY ==
--- NOTE | 2023-07-31 14:10 | A.OFFVIS_ITS ---
Intake Vital Signs 07/31/23 14:23 BP 110/72 Blood Pressure Location Lt radial Position Sitting Pulse 78 Pulse Source Pulse Oximeter Pulse Oximetry (%) 96 Oxygen Delivery Method Room Air Intake Visit Reasons: MAT Visit Intake Note: the patient presents for a ma visit Allergies No Known Allergies [No Known Allergies*] Allergy (Verified 08/07/23 09:08) Do you need a note to return to daycare/school/sports/work: No HPI MAT Visit HPI Details Patient presents for follow up Currently prescribed Suboxone 2mg daily --has been taking 1mg daily Recurrence recently. Last use one week ago Significant depression--suicidal ideation Has been microdosing psychedelics Reports feeling to be in a better place than a couple of weeks ago PFSH Medical History ADHD Family History Mother Diabetes Alcohol abuse Father Stroke Social History Household Members Other:: partner Housing: Apartment Alcohol intake: never Patient Tobacco Use Status: Former Tobacco user Substance Use Type: Marijuana Review of Systems Const Reports as per HPI and Reports no additional complaints Physical Exam Vital Signs: Last Vital Signs Pulse 78 07/31/23 14:23 BP 110/72 07/31/23 14:23 Pulse Ox 96 07/31/23 14:23 Oxygen Delivery Method Room Air 07/31/23 14:23 Const General: cooperative, no acute distress, alert and awake Nutritional Appearance: thin Orientation/consciousness: patient oriented x3 Limitations: no limitations Neuro General: patient oriented x3 Assessment & Plan Assessment & Plan (1) Opioid use disorder: Code(s): F11.99 - Opioid use, unspecified with unspecified opioid-induced disorder Plan: * increase suboxone to 2mg daily * discussed restarting lamictal to address depressive sx and possibly hypomania --patient agreeable Medications: New lamotrigine (Lamictal) 25 mg PO DAILY 14 tabs 0RF 14 days Refilled buprenorphine-naloxone 2-0.5 mg (Suboxone) 1 film buccal DAILY 30 ea 0RF Coding Level of Care Code Est Pt Level 4 (02981) Diagnoses Opioid use disorder F11.99
[2023-07-31 14:23] VITALS: BP 110/72; PULSE 78; O2SAT 96
== END 2023-07-31 15:18 | disposition home or self-care (01) ==
PROVIDERS: PCP Physician Assistant; Visit Provider Nurse Practitioner Psychiatric/Mental Health
DX: F11.99 Opioid use, unspecified with unspecified opioid-induced disorder (principal)
CPT/HCPCS: 99214

== ENCOUNTER → 2023-07-31 14:09 | Outpatient (BNVA) | payer MEDICAID, SELFPAY | PROVIDERS: PCP Physician Assistant; Visit Provider Nurse Practitioner Psychiatric/Mental Health | DX: Z51.81 Encounter for therapeutic drug level monitoring (principal); F11.20 Opioid dependence, uncomplicated | CPT/HCPCS: 99212 ==

== ENCOUNTER 2023-08-07 09:07 | Outpatient (AMB) | payer MEDICAID, SELFPAY ==
--- NOTE | 2023-08-07 09:08 | MHC.OFFVIS ---
Intake Vital Signs 08/07/23 09:13 BP 122/78 Blood Pressure Location Lt radial Position Sitting Pulse 74 Pulse Source Pulse Oximeter Pulse Oximetry (%) 98 Oxygen Delivery Method Room Air Intake Visit Reasons: MAT Visit Intake Note: the patient presents for a mat visit Network Security Engineer Required: No Allergies No Known Allergies [No Known Allergies*] Allergy (Verified 08/07/23 09:08) Do you need a note to return to daycare/school/sports/work: No HPI MAT Visit HPI Details Patient presents for follow up Has not started Lamictal, had several questions Starting to make lists about things he needs to take care of No opioid use PFSH Medical History ADHD Family History Mother Diabetes Alcohol abuse Father Stroke Social History Household Members Other:: partner Housing: Apartment Alcohol intake: never Patient Tobacco Use Status: Former Tobacco user Substance Use Type: Marijuana Review of Systems Const Reports as per HPI and Reports difficulty sleeping Physical Exam Vital Signs: Last Vital Signs Pulse 74 08/07/23 09:13 BP 122/78 08/07/23 09:13 Pulse Ox 98 08/07/23 09:13 Oxygen Delivery Method Room Air 08/07/23 09:13 Const General: cooperative, no acute distress, alert and awake Nutritional Appearance: thin Orientation/consciousness: patient oriented x3 Limitations: no limitations Neuro General: patient oriented x3 Assessment & Plan Assessment & Plan (1) Opioid use disorder: Code(s): F11.99 - Opioid use, unspecified with unspecified opioid-induced disorder Plan: will start lamictal trazodone to help with sleep follow up one week Medications: New nicotine 1 patch transdermal Q24H 14 ea 1RF trazodone 50 mg PO BEDTIME PRN 30 tabs 0RF sleep Discontinued nicotine Discontinued Reason: Doctor's Order 1 patch transdermal DAILY 28 patches 3RF Coding Level of Care Code Est Pt Level 3 (24703) Diagnoses Opioid use disorder F11.99
[2023-08-07 09:13] VITALS: BP 122/78; PULSE 74; O2SAT 98
== END 2023-08-07 09:50 | disposition home or self-care (01) ==
PROVIDERS: PCP Physician Assistant; Visit Provider Nurse Practitioner Psychiatric/Mental Health
DX: F11.99 Opioid use, unspecified with unspecified opioid-induced disorder (principal)
CPT/HCPCS: 99213

== ENCOUNTER → 2023-08-07 09:07 | Outpatient (BNVA) | payer MEDICAID, SELFPAY | PROVIDERS: PCP Physician Assistant; Visit Provider Nurse Practitioner Psychiatric/Mental Health | DX: F11.20 Opioid dependence, uncomplicated (principal) | CPT/HCPCS: 99212 ==

== ENCOUNTER 2023-08-14 09:35 | Outpatient (AMB) | payer MEDICAID, SELFPAY ==
[2023-08-14 09:42] VITALS: BP 114/74; PULSE 72; O2SAT 94
--- NOTE | 2023-08-14 09:42 | MHC.OFFVIS ---
Intake Vital Signs 08/14/23 09:42 BP 114/74 Blood Pressure Location Lt radial Position Sitting Pulse 72 Pulse Source Pulse Oximeter Pulse Oximetry (%) 94 Oxygen Delivery Method Room Air Intake Visit Reasons: MAT Visit Intake Note: the patient is here for a mat visit Complaint Inspector Required: No Allergies No Known Allergies [No Known Allergies*] Allergy (Verified 08/14/23 09:43) Do you need a note to return to daycare/school/sports/work: No HPI MAT Visit HPI Details Patient presents for follow up Reporting tooth pain on left lower side. Has started Lamotrigine, tolerating dose Having issues with unemployment claim Concerned about rent--discussed how to apply for [employer] funds Reports that he continues to abstain from substance use. [facility] Medical History ADHD Family History Mother Diabetes Alcohol abuse Father Stroke Social History Household Members Other:: partner Housing: Apartment Alcohol intake: never Patient Tobacco Use Status: Former Tobacco user Substance Use Type: Marijuana Review of Systems Const Reports as per HPI and Reports no additional complaints Physical Exam Vital Signs: Last Vital Signs Pulse 72 08/14/23 09:42 BP 114/74 08/14/23 09:42 Pulse Ox 94 08/14/23 09:42 Oxygen Delivery Method Room Air 08/14/23 09:42 Const General: cooperative, no acute distress, alert and awake Nutritional Appearance: thin Orientation/consciousness: patient oriented x3 Limitations: no limitations Neuro General: patient oriented x3 Assessment & Plan Assessment & Plan (1) Opioid use disorder: Code(s): F11.99 - Opioid use, unspecified with unspecified opioid-induced disorder Plan: continue suboxone at current dose amoxicillin and ibuprofen for tooth pain follow up one week Medications: New amoxicillin-pot clavulanate 875-125 mg Take with food. 1 tab PO BID 7 days 14 tabs 0RF Dental Infection ibuprofen Take with food. 800 mg PO TID 30 days PRN 90 tabs 3RF pain Coding Level of Care Code Est Pt Level 3 (44206) Diagnoses Opioid use disorder F11.99
== END 2023-08-14 10:11 | disposition home or self-care (01) ==
PROVIDERS: PCP Physician Assistant; Visit Provider Nurse Practitioner Psychiatric/Mental Health
DX: F11.99 Opioid use, unspecified with unspecified opioid-induced disorder (principal)
CPT/HCPCS: 99213

== ENCOUNTER → 2023-08-14 09:35 | Outpatient (BNVA) | payer MEDICAID, SELFPAY | PROVIDERS: PCP Physician Assistant; Visit Provider Nurse Practitioner Psychiatric/Mental Health | DX: F11.20 Opioid dependence, uncomplicated (principal); Z51.81 Encounter for therapeutic drug level monitoring; Z79.899 Other long term (current) drug therapy | CPT/HCPCS: 99212 ==

== ENCOUNTER 2023-08-21 10:33 | Outpatient (AMB) | payer MEDICAID, SELFPAY ==
[2023-08-21 10:41] VITALS: BP 110/70; PULSE 78; O2SAT 97
--- NOTE | 2023-08-21 10:41 | A.OFFVIS_ITS ---
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 Ready for increase. Mood stable currently PFSH Medical History ADHD Family History Mother Diabetes Alcohol abuse Father Stroke Social History Household Members Other:: partner Housing: Apartment Alcohol intake: never Patient Tobacco Use Status: Former Tobacco user Substance Use Type: Marijuana Review of Systems Const Reports as per HPI Physical Exam Vital Signs: Last Vital Signs Pulse 78 08/21/23 10:41 BP 110/70 08/21/23 10:41 Pulse Ox 97 08/21/23 10:41 Oxygen Delivery Method Room Air 08/21/23 10:41 Const General: cooperative, no acute distress, alert and awake Orientation/consciousness: patient oriented x3 Limitations: no limitations Neuro General: patient oriented x3 Assessment & Plan Assessment & Plan (1) Opioid use disorder: Code(s): F11.99 - Opioid use, unspecified with unspecified opioid-induced disorder Plan: * continue suboxone at current dose * follow up one week (2) Bipolar II disorder: Code(s): F31.81 - Bipolar II disorder Plan: * increase lamictal to 50mg QD Medications: Changed From lamotrigine (Lamictal) 25 mg PO DAILY 14 days 14 tabs 0RF To lamotrigine (Lamictal) 50 mg (2 x 25 mg) PO DAILY 60 tabs 0RF Coding Level of Care Code Est Pt Level 4 (39973) Diagnoses Opioid use disorder F11.99 Bipolar II disorder F31.81
== END 2023-08-21 11:55 | disposition home or self-care (01) ==
PROVIDERS: PCP Physician Assistant; Visit Provider Nurse Practitioner Psychiatric/Mental Health
DX: F11.99 Opioid use, unspecified with unspecified opioid-induced disorder (principal); F31.81 Bipolar II disorder
CPT/HCPCS: 99214

== ENCOUNTER → 2023-08-21 10:33 | Outpatient (BNVA) | payer MEDICAID, SELFPAY | PROVIDERS: PCP Physician Assistant; Visit Provider Nurse Practitioner Psychiatric/Mental Health | DX: F11.20 Opioid dependence, uncomplicated (principal); F31.81 Bipolar II disorder | CPT/HCPCS: 99212 ==

== ENCOUNTER 2023-08-28 09:51 | Outpatient (AMB) | payer MEDICAID, SELFPAY ==
--- NOTE | 2023-08-28 10:01 | MHC.AM.SUB ---
Intake Intake Visit Reasons: MAT Visit Allergies No Known Allergies [No Known Allergies*] Allergy (Verified 08/21/23 10:42) HPI MAT Visit HPI Details Patient presents for OUD treatment jovan george Continues to do well with current dose of suboxone and tolerating increase in lamictal dose Has decided to take a job in [place], reflecting and realizing that other job opportunity would have been high risk for recurrence. Therapist back from leave, patient has been engaged with him again. [facility] Medical History ADHD Family History Mother Diabetes Alcohol abuse Father Stroke Social History Household Members Other:: partner Housing: Apartment Alcohol intake: never Patient Tobacco Use Status: Former Tobacco user Substance Use Type: Marijuana Review of Systems Const Reports as per HPI and Reports no additional complaints Physical Exam Const General: cooperative, no acute distress, alert and awake Orientation/consciousness: patient oriented x3 Limitations: no limitations Neuro General: patient oriented x3 Assessment & Plan Assessment & Plan (1) Opioid use disorder: Code(s): F11.99 - Opioid use, unspecified with unspecified opioid-induced disorder Plan: continue suboxone at current dose follow up one week (2) Bipolar II disorder: Code(s): F31.81 - Bipolar II disorder Plan: continue lamictal at current dose Medications: New nicotine 1 patch transdermal Q24H 28 ea 1RF Refilled buprenorphine-naloxone 2-0.5 mg (Suboxone) 1 film buccal DAILY 30 ea 0RF Discontinued nicotine Discontinued Reason: Patient no longer taking 1 patch transdermal Q24H 14 ea 1RF Coding Level of Care Code Est Pt Level 3 (79504) Diagnoses Opioid use disorder F11.99 Bipolar II disorder F31.81
== END 2023-08-28 11:09 | disposition home or self-care (01) ==
PROVIDERS: PCP Physician Assistant; Visit Provider Nurse Practitioner Psychiatric/Mental Health
DX: F11.99 Opioid use, unspecified with unspecified opioid-induced disorder (principal); F31.81 Bipolar II disorder
CPT/HCPCS: 99213

== ENCOUNTER → 2023-08-28 09:51 | Outpatient (BNVA) | payer MEDICAID, SELFPAY | PROVIDERS: PCP Physician Assistant; Visit Provider Nurse Practitioner Psychiatric/Mental Health | DX: F11.20 Opioid dependence, uncomplicated (principal); F31.81 Bipolar II disorder | CPT/HCPCS: 99212 ==

== ENCOUNTER 2023-09-09 13:32 | Outpatient (AMB) | payer MEDICAID, SELFPAY ==
--- NOTE | 2023-09-09 13:35 | A.OFFVIS_ITS ---
Intake Vital Signs 09/09/23 13:42 BP 110/74 Blood Pressure Location Lt radial Position Sitting Pulse 94 Pulse Source Pulse Oximeter Pulse Oximetry (%) 97 Oxygen Delivery Method Room Air Intake Visit Reasons: mat visit Intake Note: THE PATIENT PRESENTS FOR A MAT VISIT Epidemiology Investigator Required: No Allergies No Known Allergies [No Known Allergies*] Allergy (Verified 09/09/23 13:43) Do you need a note to return to daycare/school/sports/work: No HPI mat visit HPI Details Patient presents for VIK treatment follow up Currently prescribed 2mg BID Working 5 days per week at [employer] will be training at [employer] in the near future Has been seeing therapist weekly [facility] Medical History ADHD Family History Mother Diabetes Alcohol abuse Father Stroke Social History Household Members Other:: partner Housing: Apartment Alcohol intake: never Patient Tobacco Use Status: Former Tobacco user Substance Use Type: Marijuana Review of Systems Const Reports as per HPI and Reports no additional complaints Physical Exam Vital Signs: Last Vital Signs Pulse 94 09/09/23 13:42 BP 110/74 09/09/23 13:42 Pulse Ox 97 09/09/23 13:42 Oxygen Delivery Method Room Air 09/09/23 13:42 Const General: cooperative, no acute distress, alert and awake Orientation/consciousness: patient oriented x3 Limitations: no limitations Neuro General: patient oriented x3 Assessment & Plan Assessment & Plan (1) Opioid use disorder: Code(s): F11.99 - Opioid use, unspecified with unspecified opioid-induced disorder Plan: patient to call office to schedule appt due to work schedule no refill needed at this time Coding Level of Care Code Est Pt Level 3 (65309) Diagnoses Opioid use disorder F11.99
[2023-09-09 13:42] VITALS: BP 110/74; PULSE 94; O2SAT 97
== END 2023-09-09 14:27 | disposition home or self-care (01) ==
PROVIDERS: PCP Physician Assistant; Visit Provider Nurse Practitioner Psychiatric/Mental Health
DX: F11.99 Opioid use, unspecified with unspecified opioid-induced disorder (principal)
CPT/HCPCS: 99213

== ENCOUNTER → 2023-09-09 13:32 | Outpatient (BNVA) | payer MEDICAID, SELFPAY | PROVIDERS: PCP Physician Assistant; Visit Provider Nurse Practitioner Psychiatric/Mental Health | DX: F11.20 Opioid dependence, uncomplicated (principal) | CPT/HCPCS: 99212 ==

== ENCOUNTER 2023-09-22 15:56 | Outpatient (AMB) | payer MEDICAID, SELFPAY ==
--- NOTE | 2023-09-22 15:59 | MHC.OFFVIS ---
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 Reports he had some thoughts of having money the other day which led to him to thinking about using He describes the thought just slithering into his head and he batted it away he felt good about this- t/w provided positive reinforcement He is bright and engaged, future oriented talking about going to college next year after things have stabilized for him Says he didn't think he would live this long so setting goals for himself is something new and exciting. Has no complaints or concerns at this time. [facility] Medical History ADHD Family History Mother Diabetes Alcohol abuse Father Stroke Social History Household Members Other:: partner Housing: Apartment Alcohol intake: never Patient Tobacco Use Status: Former Tobacco user Substance Use Type: Marijuana Review of Systems Const Reports as per HPI Physical Exam Vital Signs: Last Vital Signs Pulse 84 09/22/23 16:10 BP 110/70 09/22/23 16:10 Pulse Ox 98 09/22/23 16:10 Oxygen Delivery Method Room Air 09/22/23 16:10 Const General: cooperative, comfortable and alert Resp Effort & Inspection: normal respiratory effort Psych Appearance: grossly normal Mental Status: mental status grossly normal Speech and movement: Normal speech and movement present Affect: normal affect Thought content: Normal thought content present Insight: Good insight present (Psych) Judgement: Good judgement present (Psych) Assessment & Plan Assessment & Plan (1) Opioid use disorder: Code(s): F11.99 - Opioid use, unspecified with unspecified opioid-induced disorder Plan: Patient to call office to schedule appt once he receives his new schedule for the week No refill needed today Follow up in 1 week Coding Level of Care Code Est Pt Level 3 (95974) Diagnoses Opioid use disorder F11.99
[2023-09-22 16:10] VITALS: BP 110/70; PULSE 84; O2SAT 98
== END 2023-09-22 16:41 | disposition home or self-care (01) ==
PROVIDERS: PCP Physician Assistant; Visit Provider Nurse Practitioner Family
DX: F11.99 Opioid use, unspecified with unspecified opioid-induced disorder (principal)
CPT/HCPCS: 99213

== ENCOUNTER → 2023-09-22 15:56 | Outpatient (BNVA) | payer MEDICAID, SELFPAY | PROVIDERS: PCP Physician Assistant; Visit Provider Nurse Practitioner Family | DX: F11.20 Opioid dependence, uncomplicated (principal); F90.9 Attention-deficit hyperactivity disorder, unspecified type; Z87.891 Personal history of nicotine dependence; Z51.81 Encounter for therapeutic drug level monitoring; Z79.899 Other long term (current) drug therapy | CPT/HCPCS: 99212 ==

== ENCOUNTER 2023-09-29 16:35 | Outpatient (AMB) | payer MEDICAID, SELFPAY ==
[2023-09-29 16:41] VITALS: BP 110/70; PULSE 90; O2SAT 97
--- NOTE | 2023-09-29 16:41 | MHC.AM.SUB ---
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, has been doing a lot of writing Denies any concerns about recovery at this time [facility] Medical History ADHD Family History Mother Diabetes Alcohol abuse Father Stroke Social History Household Members Other:: partner Housing: Apartment Alcohol intake: never Patient Tobacco Use Status: Former Tobacco user Substance Use Type: Marijuana Review of Systems Const Reports as per HPI Physical Exam Vital Signs: Last Vital Signs Pulse 90 09/29/23 16:41 BP 110/70 09/29/23 16:41 Pulse Ox 97 09/29/23 16:41 Oxygen Delivery Method Room Air 09/29/23 16:41 Const General: cooperative and healthy appearing Resp Effort & Inspection: normal respiratory effort Skin General skin exam: no rashes or lesions noted Psych Appearance: grossly normal Mental Status: mental status grossly normal Speech and movement: Normal speech and movement present Affect: normal affect Attitude: cooperative Thought process: Normal thought process present Assessment & Plan Assessment & Plan (1) Opioid use disorder: Code(s): F11.99 - Opioid use, unspecified with unspecified opioid-induced disorder Plan: Patient to call office to schedule appt once he receives his new schedule for the week Follow up in 1 week Refill sent to pharmacy Medications: Refilled buprenorphine-naloxone 2-0.5 mg (Suboxone) 1 film buccal DAILY 30 ea 0RF Coding Level of Care Code Est Pt Level 3 (95375) Diagnoses Opioid use disorder F11.99
== END 2023-09-29 17:07 | disposition home or self-care (01) ==
PROVIDERS: PCP Physician Assistant; Visit Provider Nurse Practitioner Family
DX: F11.99 Opioid use, unspecified with unspecified opioid-induced disorder (principal)
CPT/HCPCS: 99213

== ENCOUNTER → 2023-09-29 16:35 | Outpatient (BNVA) | payer MEDICAID, SELFPAY | PROVIDERS: PCP Physician Assistant; Visit Provider Nurse Practitioner Family | DX: F11.10 Opioid abuse, uncomplicated (principal) | CPT/HCPCS: 99212 ==

== ENCOUNTER 2023-10-13 17:31 | Outpatient (AMB) | payer MEDICAID, SELFPAY ==
--- NOTE | 2023-10-13 17:34 | A.OFFVIS_ITS ---
Intake Vital Signs 3 10/13/23 17:35 BP 118/74 Blood Pressure Location Lt radial Position Sitting Pulse 78 Pulse Source Pulse Oximeter Pulse Oximetry (%) 96 Oxygen Delivery Method Room Air Intake Visit Reasons: mat visit Intake Note: the patient presents for a mat visit Lab Systems Analyst Required: No Allergies No Known Allergies [No Known Allergies*] Allergy (Verified 10/13/23 17:36) Do you need a note to return to daycare/school/sports/work: No HPI mat visit 2 HPI0 Details He presents today for VIK treatment and follow up Denies any recovery concerns Reports he has been experiencing dental pain x 1 week, it is a known cavity to him. He reports he has been unable to go to the dentist due to financial barriers. He is also expressing interest in nicotine patches, he has been doing lozenges but feel as though they aggravate his cavity. Reports work has been going well for him, denies any recovery concerns. [facility] Medical History ADHD Family History Mother Diabetes Alcohol abuse Father Stroke Social History Household Members Other:: partner Housing: Apartment Alcohol intake: never Patient Tobacco Use Status: Former Tobacco user Substance Use Type: Marijuana Review of Systems Const Reports as per HPI ENT Reports dental pain Physical Exam Vital Signs: Last Vital Signs Pulse 78 10/13/23 17:35 BP 118/74 10/13/23 17:35 Pulse Ox 96 10/13/23 17:35 Oxygen Delivery Method Room Air 10/13/23 17:35 Const General: cooperative Nutritional Appearance: thin HEENT Face and sinus: Yes face symmetric and No edema Mouth: Normal oral and palatal mucosa present Teeth and gingiva: caries Teeth image: 2 1. cavity noted, tooth intact Assessment & Plan Assessment & Plan (1) Opioid use disorder: Code(s): F11.99 - Opioid use, unspecified with unspecified opioid-induced disorder Plan: -Continue suboxone at current dose, refill not yet needed at this time -Nicotine patches ordered per pt request -Follow up 1 week, office to call for appointment (2) Dental caries: Code(s): K02.9 - Dental caries, unspecified Plan: -Augmentin sent to pharmacy -Peridex sent to pharmacy -Advised pt to use peridex 1-2 times daily as maintenence after antibiotics are finished. -Advised him to take ibuprofin 800mg tid for pain control Medications: New 2 chlorhexidine gluconate 0.12% (Peridex) 15 mL buccal DAILY 1,893 mL 0RF nicotine 1 patch transdermal DAILY 28 ea 0RF Refilled 2 amoxicillin-pot clavulanate 875-125 mg Take with food. 1 tab PO BID 7 days 14 tabs 0RF Dental Infection Discontinued 2 nicotine Discontinued Reason: More recent result 1 patch transdermal Q24H 28 ea 1RF Coding Level of Care Code Est Pt Level 3 (33719) Diagnoses Opioid use disorder F11.99 Dental caries K02.9
[2023-10-13 17:35] VITALS: BP 118/74; PULSE 78; O2SAT 96
== END 2023-10-13 17:58 | disposition home or self-care (01) ==
LOC: HO.HCC 17:31
PROVIDERS: PCP Physician Assistant; Visit Provider Nurse Practitioner Family
DX: F11.99 Opioid use, unspecified with unspecified opioid-induced disorder (principal); K02.9 Dental caries, unspecified
CPT/HCPCS: 99213

== ENCOUNTER → 2023-10-13 17:31 | Outpatient (BNVA) | payer MEDICAID, SELFPAY | PROVIDERS: PCP Physician Assistant; Visit Provider Nurse Practitioner Family | DX: F11.20 Opioid dependence, uncomplicated (principal); K02.9 Dental caries, unspecified | CPT/HCPCS: 99212 ==

== ENCOUNTER 2023-10-29 10:49 | Outpatient (AMB) | payer MEDICAID, SELFPAY ==
--- NOTE | 2023-10-29 11:16 | MHC.AM.SUB ---
Intake Vital Signs 10/29/23 11:43 BP 128/84 Blood Pressure Location Rt brachial Position Sitting Respiration 18 Pulse 67 Pulse Source Pulse Oximeter Pulse Oximetry (%) 96 Oxygen Delivery Method Room Air Intake Visit Reasons: mat visit Allergies No Known Allergies [No Known Allergies*] Allergy (Verified 10/13/23 17:36) HPI mat visit HPI Details Pt presents for VIK treatment and follow up He reports the last few weeks have been going really well for him He feels as though many good things are starting to happen for him. He is future oriented, he has set goals for himself this year including advocating for himself more. He denies any cravings, or concerns with side effects. Reports he is no longer taking the lamotrigne or trazodone and hasn't for the last few months. He reports mood has been good, sleeping well. He is going to bed earlier in the evening and getting up earlier in the morning. Has a monthly advocacy committee that he is involved with that has a meeting today. [facility] Medical History ADHD Family History Mother Diabetes Alcohol abuse Father Stroke Social History Household Members Other:: partner Housing: Apartment Alcohol intake: never Patient Tobacco Use Status: Former Tobacco user Substance Use Type: Marijuana Review of Systems Const Reports as per HPI Physical Exam Vital Signs: Last Vital Signs Pulse 67 10/29/23 11:43 Resp 18 10/29/23 11:43 BP 128/84 10/29/23 11:43 Pulse Ox 96 10/29/23 11:43 Oxygen Delivery Method Room Air 10/29/23 11:43 Const General: cooperative and healthy appearing Resp Effort & Inspection: normal respiratory effort Psych Appearance: grossly normal Speech and movement: Normal speech and movement present Affect: normal affect Attitude: cooperative Thought process: Normal thought process present Assessment & Plan Assessment & Plan (1) Opioid use disorder: Code(s): F11.99 - Opioid use, unspecified with unspecified opioid-induced disorder Plan: -Continue suboxone at same dose -Follow up 2 weeks- he is to call office for appointment when he gets his work schedule Medications: New nicotine 1 patch transdermal DAILY 28 ea 1RF Refilled buprenorphine-naloxone 2-0.5 mg (Suboxone) 1 film buccal DAILY 30 ea 0RF ibuprofen Take with food. 800 mg PO TID PRN 90 tabs 3RF pain 30 days Coding Level of Care Code Est Pt Level 3 (22652) Diagnoses Opioid use disorder F11.99
[2023-10-29 11:43] VITALS: BP 128/84; PULSE 67; RESP 18; O2SAT 96
== END 2023-10-29 11:26 | disposition home or self-care (01) ==
PROVIDERS: PCP Physician Assistant; Visit Provider Nurse Practitioner Family
DX: F11.99 Opioid use, unspecified with unspecified opioid-induced disorder (principal)
CPT/HCPCS: 99213

== ENCOUNTER → 2023-10-29 10:49 | Outpatient (BNVA) | payer MEDICAID, SELFPAY | PROVIDERS: PCP Physician Assistant; Visit Provider Nurse Practitioner Family | DX: F11.20 Opioid dependence, uncomplicated (principal) | CPT/HCPCS: 99212 ==

== ENCOUNTER 2023-12-17 14:21 | Outpatient (AMB) | payer MEDICAID, SELFPAY ==
--- NOTE | 2023-12-17 14:36 | MHC.AM.SUB ---
Intake Vital Signs 12/17/23 14:41 BP 110/80 Blood Pressure Location Lt brachial Position Right Lateral Pulse 90 Pulse Source Pulse Oximeter Pulse Oximetry (%) 96 Intake Visit Reasons: MAT Visit Allergies No Known Allergies [No Known Allergies*] Allergy (Verified 10/13/23 17:36) Medication List - Last Reconciled 12/17/23 by Ashleigh Villasenor CNP buprenorphine-naloxone 2-0.5 mg (Suboxone) 1 film buccal DAILY ibuprofen 400 mg PO Q6H PRN ibuprofen 800 mg PO TID PRN 30 days multivitamin with iron 1 tab PO DAILY nicotine 1 patch transdermal DAILY nicotine (polacrilex) 4 mg buccal Q4-8H PRN HPI MAT Visit HPI Details Patient presents for follow up Currently taking approx 1mg daily No issues with sleep Still 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 with Working PT (30 hrs/wk) Reporting that he is doing well overall [facility] Medical History ADHD Family History Mother Diabetes Alcohol abuse Father Stroke Social History Household Members Other:: partner Housing: Apartment Alcohol intake: never Patient Tobacco Use Status: Former Tobacco user Substance Use Type: Marijuana Review of Systems Const Reports as per HPI and Reports no additional complaints Physical Exam Vital Signs: Last Vital Signs Pulse 90 12/17/23 14:41 BP 110/80 12/17/23 14:41 Pulse Ox 96 12/17/23 14:41 Const General: cooperative and healthy appearing Psych Appearance: grossly normal Speech and movement: Normal speech and movement present Affect: normal affect Attitude: cooperative Thought process: Normal thought process present Assessment & Plan Assessment & Plan (1) Opioid use disorder: Code(s): F11.99 - Opioid use, unspecified with unspecified opioid-induced disorder Plan: -Continue suboxone at same dose -Follow up 3 -4 weeks Medications: Refilled buprenorphine-naloxone 2-0.5 mg (Suboxone) 1 film buccal DAILY 30 ea 0RF nicotine 1 patch transdermal DAILY 28 ea 3RF Coding Level of Care Code Est Pt Level 3 (05552) Diagnoses Opioid use disorder F11.99
[2023-12-17 14:41] VITALS: BP 110/80; PULSE 90; O2SAT 96
== END 2023-12-17 15:19 | disposition home or self-care (01) ==
PROVIDERS: PCP Physician Assistant; Visit Provider Nurse Practitioner Psychiatric/Mental Health
DX: F11.99 Opioid use, unspecified with unspecified opioid-induced disorder (principal)
CPT/HCPCS: 99213

== ENCOUNTER → 2023-12-17 14:21 | Outpatient (BNVA) | payer MEDICAID, SELFPAY | PROVIDERS: PCP Physician Assistant; Visit Provider Nurse Practitioner Psychiatric/Mental Health | DX: Z51.81 Encounter for therapeutic drug level monitoring (principal); F11.20 Opioid dependence, uncomplicated | CPT/HCPCS: 99212 ==

== ENCOUNTER 2024-01-02 11:38 | Emergency (ER) | payer OTHER, SELFPAY ==
--- NOTE | ~2024-01-02 | CT_ITS ---
Examination: CT brain and CT facial bones without contrast. CLINICAL INDICATION: Hit face on the wall, swelling. COMPARISON: None. TECHNIQUE: Axial 5 mm thin and reformatted 2 mm thin sagittal and coronal images of brain were obtained. Subsequently axial 3 mm thin and reformatted 1.5 mm thin sagittal and coronal images of facial bones were obtained. DLP 906. This CT examination was performed using dose optimization technique as appropriate, variously including the following: Automated exposure control Adjustment of MA and/or KV according to patient size(this includes techniques or standardized protocols for targeted exams where dose is matched to indication/reason for exam; extremities or head. Use of iterative reconstruction techniques. FINDINGS: Brain: There is no acute intra-axial, extra-axial bleed, masses, collection or midline shift. The lateral ventricles are symmetrical in size and configuration without enlargement. The zamora to white matter differentiation is maintained. Bone windows reveal no calvarial abnormality. There is no scalp soft tissue abnormality. There is minimal mucoperiosteal thickening in bilateral frontal sinuses. Rest of the paranasal sinuses and mastoid air cells are well-aerated. Facial bones: There is mild mucoperiosteal thickening bilateral frontal and ethmoid sinuses. Rest the paranasal sinuses are clear. The bony sinus juarez, lamina papyracea and cribriform plate are intact. There is no fracture involving nasal and maxillofacial bones. Bilateral TM joints are symmetrical and normal. The mandible is intact. The nasal cavity, nasopharynx and the pharyngeal airway is widely patent. The parapharyngeal, prevertebral soft tissues are normal. The maxillofacial soft tissues are normal. CT/CT facial bones wo IV con IMPRESSION: No acute intracranial process seen. No acute maxillofacial, nasal or mandibular fractures seen on the visualized images.
[2024-01-02 11:52] VITALS: BP 113/75; PULSE 74; RESP 16; TEMP 36.5; O2SAT 100; BMI 22.9
--- NOTE | 2024-01-02 11:52 | ED_ITS ---
HPI - General Adult General Chief complaint: Head Injury Stated complaint: Head Injury Time Seen by Provider: 01/02/24 13:42 Source: patient Mode of arrival: ambulatory Limitations: no limitations History of Present Illness HPI narrative: Patient is a 33-year-old male with history of opioid use disorder, bipolar II disorder presenting to the emergency department with complaint of headache, confusion, vomiting last night. States he has night terrors, and 3-4 nights ago rolled over in his sleep and hit his head against the wall. Has picture on phone with swelling around L eye which was since improved. Denies blurred vision, double vision or other visual changes. complaint: head injury Onset (ago): day(s) Location: head and face (left side around eye) Quality: aching Pain Consistency: colicky Associated symptoms: denies other symptoms Treatments prior to arrival: none Related Data Previous Rx's Medication Instructions Recorded nicotine (polacrilex) 4 mg buccal 4 mg buccal Q4-8H PRN nicotine 10/03/21 lozenge cravings #96 ea ibuprofen 400 mg tablet 400 mg PO Q6H PRN pain #20 tabs 01/19/23 multivitamin with iron 1 tab PO DAILY #30 tabs 06/02/23 ibuprofen 800 mg tablet 800 mg PO TID PRN pain 30 days #90 10/29/23 tabs buprenorphine 2 mg-naloxone 0.5 mg 1 film buccal DAILY #30 ea 12/17/23 sublingual film (Suboxone) nicotine 14 mg/24 hr daily 1 patch transdermal DAILY #28 ea 12/17/23 transdermal patch ondansetron 4 mg disintegrating 4 mg PO Q8H PRN nausea and 01/02/24 tablet vomiting #10 tabs Allergies Allergy/AdvReac Type Severity Reaction Status Date / Time No Known Allergies Allergy Verified 01/02/24 11:52 [No Known Allergies*] Review of Systems 2 Review of Systems: Yes all other systems are reviewed and are negative Constitutional: Constitutional: Reports as per [facility] Past Medical History Medical History ADHD Family History Family History Mother Diabetes Alcohol abuse Father Stroke Social History Social History Household Members Other:: partner Housing: Apartment Alcohol intake: never Patient Tobacco Use Status: Former Tobacco user Substance Use Type: Marijuana Physical Exam ED Vital Signs: Vital Signs - 24 hr 01/02/24 11:52 Temperature 97.7 F Pulse Rate 74 Respiratory Rate 16 Blood Pressure 113/75 Pulse Oximetry 100 Oxygen Delivery Method Room Air BMI result Body Mass Index 22.9 Vital signs have been reviewed and appear to be correct. Blood pressure normal. Heart rate normal. Respiratory rate normal. Temperature normal. Oxygen saturation normal. Const General: cooperative, healthy appearing and no acute distress Orientation/consciousness: oriented to person, oriented to place, oriented to time and patient oriented x3 Limitations: no limitations HENMT Head: Yes normocephalic and Yes atraumatic Ears: external ears normal General nose exam: Normal external nose present Face and sinus: Yes face symmetric Face images: 2 1. mild swelling/tenderness, no ecchymosis Mouth: oropharynx normal and moist mucous membranes Throat: Yes uvula midline Eyes Pupils: Equal, round and reactive pupils present EOM: EOMs intact bilaterally Neck Neck: Yes normal visual inspection, Yes no meningeal signs and Yes supple Resp Effort & Inspection: normal respiratory effort and able to speak in complete sentences Auscultation: clear to auscultation bilaterally Cardio Rate: regular rate Rhythm: regular rhythm Heart sounds: S1 normal heart sound present and S2 normal heart sound present GI Palpation (GI): Soft to palpation and nontender Auscultation: normoactive bowel sounds General: Yes no CVA tenderness Back/Spine/Pelvis Back: no CVA tenderness Skin General skin exam: elasticity normal and turgor normal Neuro General: oriented to person, oriented to place, oriented to time, patient oriented x3, gait normal, tone normal, moves all extremities, Normal light touch and pain sensation, no meningeal signs, no focal motor deficits, CN's II-XI intact bilaterally and deep tendon reflexes 2+ bilaterally Cranial nerves: Yes Equal, round and reactive pupils present Cognition (Neuro): normal cognition Gait exam (Neuro): Normal gait present Motor exam (neuro): 5/5 motor strength present throughout Sensory Exam: Normal double simultaneous stimulation for sensation Extrem General: Yes full ROM, Yes no pedal edema and Yes no calf tenderness Psych Mental Status: mental status grossly normal Affect: normal affect Thought process: Normal thought process present Medical Decision Making Medical Decision Making MDM Narrative: Patient is a 33-year-old male with history of opioid use disorder, bipolar II disorder presenting to the emergency department with complaint of headache, confusion, vomiting last night. On exam patient is awake, A+Ox3, VS WNL, afebrile, normal neurological exam without focal deficits, physical exam findings as above. Given reported symptoms and physical exam findings, initial differential includes contusion, concussion, ICH, fracture. CT notable for no acute bleed or fracture. My interpretation is in agreement with the radiologist's interpretation. Results discussed with patient and all questions answered. Discussed concussion protocol with patient. Will prescribe ondansetron for nausea, advised patient to alternate Tylenol/ibuprofen, cognitive rest. Strict return precautions discussed. Patient verbalized understanding of and agreement with plan. Differential Diagnosis Differential Diagnoses: The differential diagnosis associated with the presentation includes As per [facility] Admission/Observation Consideration of admission/observation: Escalation of care including admission/observation considered Independent Interpretation I performed an independent interpretation of an: CT Scan Interpretation: No evidence of ICH or fracture on CT scans Radiology Impression Discussion of test interpretation with radiology: I have reviewed the radiologist's reading. Radiologist Impression: CT/CT head/brain wo IV con IMPRESSION: No acute intracranial process seen. No acute maxillofacial, nasal or mandibular fractures seen on the visualized images. External Record Review External record reviewed: Inpatient record, Office record and Outpatient record Prescription Management I considered prescription management with: Other Discharge Plan Discharge Clinical Impression: Closed head injury Patient Disposition: Home, Self-Care Instructions: Concussion (ED), Post Concussion Syndrome (ED) Additional Instructions: You have been evaluated in the emergency department today for head injury. Your CT scans did not show signs of a bleed or fractures in your head. We recommend you take 600 mg ibuprofen every 6 hours or Tylenol 650 mg every 6 hours as needed for pain. If needed, you can alternate these medications so that you take 1 medication every 3 hours. For instance, at noon take ibuprofen, then at 3:00 p.m. take Tylenol, then at 6:00 p.m. take ibuprofen. You are being prescribed ondansetron which you can use every 8 hours as needed for nausea. Please schedule an appointment with for follow-up with your primary care provider as soon as possible. Return to the emergency department if you experience worsening or uncontrolled pain, vision changes, recurrent vomiting, difficulty with normal activities, abnormal behavior, difficulty walking, numbness, weakness, or any other concerning symptoms. Prescriptions: New ondansetron 4 mg tablet,disintegrating 4 mg PO Q8H PRN (Reason: nausea and vomiting) Qty: 10 0RF No Action multivitamin with iron Tablet 1 tab PO DAILY Qty: 30 0RF ibuprofen 400 mg tablet 400 mg PO Q6H PRN (Reason: pain) Qty: 20 0RF nicotine (polacrilex) 4 mg lozenge 4 mg buccal Q4-8H PRN (Reason: nicotine cravings) Qty: 96 3RF ibuprofen 800 mg tablet 800 mg PO TID PRN (Reason: pain) 30 Days Qty: 90 3RF Rx Instructions: Take with food. nicotine 14 mg/24 hr patch 24 hour 1 patch transdermal DAILY Qty: 28 3RF buprenorphine-naloxone [Suboxone] 2-0.5 mg film 1 film buccal DAILY Qty: 30 0RF
[2024-01-02 13:43] VITALS: BP 122/75; PULSE 82; RESP 18; TEMP 37.2; O2SAT 100
== END 2024-01-02 13:54 | disposition home or self-care (01) ==
PROVIDERS: Emergency Provider Student in an Organized Health Care Education/Training Program; PCP Physician Assistant
DX: S09.90XA Unspecified injury of head, initial encounter (principal); W22.01XA Walked into wall, initial encounter; Y93.9 Activity, unspecified; Y92.9 Unspecified place or not applicable; Y99.9 Unspecified external cause status; R51.9 Headache, unspecified; R41.0 Disorientation, unspecified; F51.4 Sleep terrors [night terrors]
CPT/HCPCS: 70450; 70486; 99282; 99284

== ENCOUNTER 2024-01-14 13:31 | Outpatient (AMB) | payer MEDICAID, SELFPAY ==
--- NOTE | 2024-01-14 13:33 | MHC.AM.SUB ---
Intake Vital Signs 01/14/24 13:39 BP 110/70 Blood Pressure Location Lt radial Position Sitting Pulse 84 Pulse Source Pulse Oximeter Pulse Oximetry (%) 99 Oxygen Delivery Method Room Air Intake Visit Reasons: MAT Intake Note: the patient presents for a mat visit Machine Biller Required: No Allergies No Known Allergies [No Known Allergies*] Allergy (Verified 01/14/24 13:43) Do you need a note to return to daycare/school/sports/work: No HPI MAT HPI Details Pt presents for MAT visit Reports he sustained a concussion 2-3 weeks ago which led to him using heroin x 2-3 days to address the pain He reports when he used he smoked it as he felt it was less potent this way He spent 1-2 days detoxing in his room before resuming his suboxone and has been taking 2mg daily He is still working fulltime Asking for refill of nicotine patches and gum at this time [facility] Medical History ADHD Family History Mother Diabetes Alcohol abuse Father Stroke Social History Household Members Other:: partner Housing: Apartment Alcohol intake: never Patient Tobacco Use Status: Former Tobacco user Substance Use Type: Marijuana Review of Systems Const Reports as per HPI Physical Exam Vital Signs: Last Vital Signs Pulse 84 01/14/24 13:39 BP 110/70 01/14/24 13:39 Pulse Ox 99 01/14/24 13:39 Oxygen Delivery Method Room Air 01/14/24 13:39 Const General: cooperative and no acute distress Resp Effort & Inspection: normal respiratory effort Psych Appearance: grossly normal Mental Status: mental status grossly normal Speech and movement: Normal speech and movement present Affect: Animated affect present Attitude: cooperative Thought process: Normal thought process present Assessment & Plan Assessment & Plan (1) Opioid use disorder: Code(s): F11.99 - Opioid use, unspecified with unspecified opioid-induced disorder Plan: -Discussed harm reduction, offered fentanyl test strips, he declined -Provided him with Narcan -Discussed relapse prevention, encouraged him to call the office for support -Follow up 1 week Medications: New nicotine 1 patch transdermal DAILY 28 ea 0RF Refilled buprenorphine-naloxone 2-0.5 mg (Suboxone) 1 film buccal DAILY 30 ea 0RF nicotine (polacrilex) 4 mg buccal Q4-8H PRN 96 ea 3RF nicotine cravings Discontinued nicotine Discontinued Reason: Doctor's Order 1 patch transdermal DAILY 28 ea 3RF Coding Level of Care Code Est Pt Level 3 (94967) Diagnoses Opioid use disorder F11.99
[2024-01-14 13:39] VITALS: BP 110/70; PULSE 84; O2SAT 99
== END 2024-01-14 14:28 | disposition home or self-care (01) ==
PROVIDERS: PCP Physician Assistant; Visit Provider Nurse Practitioner Family
DX: F11.99 Opioid use, unspecified with unspecified opioid-induced disorder (principal)
CPT/HCPCS: 99213

== ENCOUNTER → 2024-01-14 13:31 | Outpatient (BNVA) | payer MEDICAID, SELFPAY | PROVIDERS: PCP Physician Assistant; Visit Provider Nurse Practitioner Family | DX: F11.20 Opioid dependence, uncomplicated (principal) | CPT/HCPCS: 99212 ==

== ENCOUNTER 2024-02-11 11:09 | Outpatient (AMB) | payer MEDICAID, SELFPAY ==
--- NOTE | 2024-02-11 11:07 | A.OFFVISCC_ITS ---
Vital Signs 02/11/24 11:11 BP 124/84 Blood Pressure Location Lt brachial Position Sitting Pulse 85 Pulse Source Pulse Oximeter Pulse Oximetry (%) 98 Oxygen Delivery Method Room Air Intake Visit Reasons: mat visit Allergies No Known Allergies [No Known Allergies*] Allergy (Verified 02/11/24 11:07) HPI HPI mat visit: Details: Patient presents for follow up Notes from previous visit reviewed He reports that past month has been positive He is sleeping well Eating okay Still working 30 hours per week More regularly participating [employer] Medical History ADHD Family History Mother Diabetes Alcohol abuse Father Stroke Social History Household Members Other:: partner Housing: Apartment Alcohol intake: never Patient Tobacco Use Status: Former Tobacco user Substance Use Type: Marijuana Review of Systems Const Reports as per HPI and Reports no additional complaints Physical Exam Vital Signs: Last Vital Signs Pulse 85 02/11/24 11:11 BP 124/84 02/11/24 11:11 Pulse Ox 98 02/11/24 11:11 Oxygen Delivery Method Room Air 02/11/24 11:11 Const General: cooperative and no acute distress Resp Effort & Inspection: normal respiratory effort Psych Appearance: grossly normal Mental Status: mental status grossly normal Speech and movement: Normal speech and movement present Affect: Animated affect present Attitude: cooperative Thought process: Normal thought process present Assessment & Plan Assessment & Plan (1) Opioid use disorder: Code(s): F11.99 - Opioid use, unspecified with unspecified opioid-induced disorder Category: Medical Plan: * continue suboxone at current dose * follow up one month * nicotine patch refilled Medications: Refilled buprenorphine-naloxone 2-0.5 mg (Suboxone) 1 film buccal DAILY 30 ea 0RF nicotine 1 patch transdermal DAILY 30 ea 3RF
[2024-02-11 11:11] VITALS: BP 124/84; PULSE 85; O2SAT 98
== END 2024-02-11 11:41 | disposition home or self-care (01) ==
PROVIDERS: PCP Physician Assistant; Visit Provider Nurse Practitioner Psychiatric/Mental Health
DX: F11.99 Opioid use, unspecified with unspecified opioid-induced disorder (principal)
CPT/HCPCS: 99213

== ENCOUNTER → 2024-02-11 11:09 | Outpatient (BNVA) | payer MEDICAID, SELFPAY | PROVIDERS: PCP Physician Assistant; Visit Provider Nurse Practitioner Psychiatric/Mental Health | DX: F11.20 Opioid dependence, uncomplicated (principal); Z79.899 Other long term (current) drug therapy; Z51.81 Encounter for therapeutic drug level monitoring | CPT/HCPCS: 99212 ==

== ENCOUNTER 2024-02-18 01:07 | Emergency (ER) | payer MEDICAID, SELFPAY ==
[2024-02-18 01:11] VITALS: BP 138/98; PULSE 88; RESP 18; TEMP 36.9; O2SAT 98; BMI 22.1
== END 2024-02-18 02:21 | disposition left against medical advice (07) ==
PROVIDERS: Emergency Provider Emergency Medicine
DX: R41.0 Disorientation, unspecified (principal)
CPT/HCPCS: 99281

== ENCOUNTER 2024-03-10 11:17 | Outpatient (AMB) | payer MEDICAID, SELFPAY ==
[2024-03-10 11:21] VITALS: BP 138/70; PULSE 74; O2SAT 95
--- NOTE | 2024-03-10 11:21 | A.OFFVISCC_ITS ---
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, spending time with friends Thinking about what is next for him tolerating suboxone dose PFSH Medical History ADHD Family History Mother Diabetes Alcohol abuse Father Stroke Social History Household Members Other:: partner Housing: Apartment Alcohol intake: never Patient Tobacco Use Status: Former Tobacco user Substance Use Type: Marijuana Review of Systems Const Reports as per HPI and Reports no additional complaints Physical Exam Vital Signs: Last Vital Signs Pulse 74 03/10/24 11:21 BP 138/70 03/10/24 11:21 Pulse Ox 95 03/10/24 11:21 Oxygen Delivery Method Room Air 03/10/24 11:21 Const General: cooperative and no acute distress Resp Effort & Inspection: normal respiratory effort Psych Appearance: grossly normal Mental Status: mental status grossly normal Speech and movement: Normal speech and movement present Affect: Animated affect present Attitude: cooperative Thought process: Normal thought process present Assessment & Plan Assessment & Plan (1) Opioid use disorder: Code(s): F11.99 - Opioid use, unspecified with unspecified opioid-induced disorder Category: Medical Plan: * continue suboxone at current dose * follow up 4 weeks * relapse prevention discussion Medications: Refilled buprenorphine-naloxone 2-0.5 mg (Suboxone) 1 film buccal DAILY 30 ea 0RF
== END 2024-03-10 12:06 | disposition home or self-care (01) ==
PROVIDERS: Visit Provider Nurse Practitioner Psychiatric/Mental Health
DX: F11.99 Opioid use, unspecified with unspecified opioid-induced disorder (principal)
CPT/HCPCS: 99213

== ENCOUNTER → 2024-03-10 11:17 | Outpatient (BNVA) | payer MEDICAID, SELFPAY | PROVIDERS: Visit Provider Nurse Practitioner Psychiatric/Mental Health | DX: F11.20 Opioid dependence, uncomplicated (principal) | CPT/HCPCS: 99212 ==

== ENCOUNTER 2024-04-06 16:17 | Outpatient (AMB) | payer MEDICAID, SELFPAY ==
--- NOTE | 2024-04-06 16:16 | A.OFFVISCC_ITS ---
Vital Signs 04/06/24 16:20 BP 128/84 Blood Pressure Location Lt brachial Position Sitting Pulse 82 Pulse Source Pulse Oximeter Pulse Oximetry (%) 98 Oxygen Delivery Method Room Air Intake Visit Reasons: MAT Allergies No Known Allergies [No Known Allergies*] Allergy (Verified 02/18/24 01:13) HPI HPI MAT: Details: Recent recurrence of use friend passed from an overdose relative also passed back on suboxone requesting increase as cravings are stil present processed some of this discussed overdose prevention --marco a as patient always uses alone. PFSH Medical History ADHD Family History Mother Diabetes Alcohol abuse Father Stroke Social History Household Members Other:: partner Housing: Apartment Alcohol intake: never Patient Tobacco Use Status: Former Tobacco user Substance Use Type: Marijuana Review of Systems Const Reports as per HPI Physical Exam Vital Signs: Last Vital Signs Pulse 82 04/06/24 16:20 BP 128/84 04/06/24 16:20 Pulse Ox 98 04/06/24 16:20 Oxygen Delivery Method Room Air 04/06/24 16:20 Const General: cooperative, healthy appearing and well groomed Nutritional Appearance: thin Orientation/consciousness: patient oriented x3 Limitations: no limitations Neuro General: patient oriented x3 Assessment & Plan Assessment & Plan (1) Opioid use disorder: Code(s): F11.99 - Opioid use, unspecified with unspecified opioid-induced disorder Category: Medical Plan: * increase suboxone to 2mg BID * requesting to return in one week * reinforced overdose prevention Medications: Changed From buprenorphine-naloxone 2-0.5 mg (Suboxone) 1 film buccal DAILY 30 ea 0RF To buprenorphine-naloxone 2-0.5 mg (Suboxone) 1 film sublingual BID 60 ea 1RF
[2024-04-06 16:20] VITALS: BP 128/84; PULSE 82; O2SAT 98
== END 2024-04-06 17:08 | disposition home or self-care (01) ==
PROVIDERS: Visit Provider Nurse Practitioner Psychiatric/Mental Health
DX: F11.99 Opioid use, unspecified with unspecified opioid-induced disorder (principal)
CPT/HCPCS: 99214

== ENCOUNTER → 2024-04-06 16:17 | Outpatient (BNVA) | payer MEDICAID, SELFPAY | PROVIDERS: Visit Provider Nurse Practitioner Psychiatric/Mental Health | DX: F11.29 Opioid dependence with unspecified opioid-induced disorder (principal) | CPT/HCPCS: 99212 ==

== ENCOUNTER 2024-04-14 16:37 | Outpatient (AMB) | payer MEDICAID, SELFPAY ==
--- NOTE | 2024-04-15 09:07 | MHC.AM.SUB ---
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 Feeling mostly upbeat at this time, reports he had some slip ups over the past month but identifies the triggers to each one and feels as though they have been learning experiences for him HPI Comments Details: Patient presents for MAT visit [facility] Medical History ADHD Family History Mother Diabetes Alcohol abuse Father Stroke Social History Household Members Other:: partner Housing: Apartment Alcohol intake: never Patient Tobacco Use Status: Former Tobacco user Substance Use Type: Marijuana Review of Systems Const Reports as per HPI Physical Exam Const General: cooperative and no acute distress Resp Effort & Inspection: normal respiratory effort and able to speak in complete sentences Psych Appearance: grossly normal Mental Status: mental status grossly normal Speech and movement: Normal speech and movement present Affect: normal affect Attitude: cooperative Thought process: Normal thought process present Assessment & Plan Assessment & Plan (1) Opioid use disorder: Code(s): F11.99 - Opioid use, unspecified with unspecified opioid-induced disorder Category: Medical Plan: -SABINO raymundo reviewed -No refill due at this time -Follow up 1 week
[2024-04-15 09:13] VITALS: BP 122/80; PULSE 78; O2SAT 98
== END 2024-04-14 17:05 | disposition home or self-care (01) ==
PROVIDERS: Visit Provider Nurse Practitioner Family
DX: F11.99 Opioid use, unspecified with unspecified opioid-induced disorder (principal)
CPT/HCPCS: 99213

== ENCOUNTER → 2024-04-14 16:37 | Outpatient (BNVA) | payer MEDICAID, SELFPAY | PROVIDERS: Visit Provider Nurse Practitioner Family | DX: F11.20 Opioid dependence, uncomplicated (principal) | CPT/HCPCS: 99212 ==

== ENCOUNTER 2024-04-21 11:32 | Outpatient (AMB) | payer MEDICAID, SELFPAY ==
--- NOTE | 2024-04-21 11:45 | MHC.AM.SUB ---
Intake Visit Reasons: MAT Allergies No Known Allergies [No Known Allergies*] Allergy (Verified 02/18/24 01:13) HPI HPI MAT: Details: Patient presents for follow up Currently prescribed Suboxone 2mg BID Started a second job. Waking up more achy. Muscle spasms No substance use PFSH Medical History ADHD Family History Mother Diabetes Alcohol abuse Father Stroke Social History Household Members Other:: partner Housing: Apartment Alcohol intake: never Patient Tobacco Use Status: Former Tobacco user Substance Use Type: Marijuana Review of Systems Const Reports as per HPI and Reports no additional complaints Physical Exam Const General: cooperative and no acute distress Resp Effort & Inspection: normal respiratory effort and able to speak in complete sentences Psych Appearance: grossly normal Mental Status: mental status grossly normal Speech and movement: Normal speech and movement present Affect: normal affect Attitude: cooperative Thought process: Normal thought process present Assessment & Plan Assessment & Plan (1) Opioid use disorder: Code(s): F11.99 - Opioid use, unspecified with unspecified opioid-induced disorder Category: Medical Plan: continue suboxone at current dose relapse prevention discussion follow up one week with RN encouraged to try heating pad--flexeril rx sent in PRN Orders: Orders Complete Blood Count Auto Diff 04/21/24 Z79.899 - Other intermediate designer (current) drug therapy Liver Panel 04/21/24 Z79.899 - Other intermediate designer (current) drug therapy HIV Ab/Ag 04/21/24 Z79.899 - Other intermediate designer (current) drug therapy Comprehensive Met. Panel 04/21/24 Z79.899 - Other group home (current) drug therapy Medications: New cyclobenzaprine 5 mg PO BID PRN 30 tabs 0RF muscle spasm
== END 2024-04-21 14:25 | disposition home or self-care (01) ==
PROVIDERS: Visit Provider Nurse Practitioner Psychiatric/Mental Health
DX: F11.99 Opioid use, unspecified with unspecified opioid-induced disorder (principal)
CPT/HCPCS: 99214

== ENCOUNTER 2024-04-21 11:32 | Outpatient (REF) | payer MEDICAID, SELFPAY ==
[2024-04-21 12:19] LABS: MANUAL DIFF FLAG NO
[2024-04-21 12:48] LABS: Basophils Absolute Auto 0.1 X10*3/uL (0.0-0.2); Basophils Percent Auto 0.7 % (0-2); Eosinophils Absolute Auto 0.2 X10*3/uL (0.0-0.4); Eosinophils Percent Auto 3.1 % (0-4); Hematocrit 43.3 % (42.0-52.0); Hemoglobin 14.3 g/dl (14.0-18.0); Imm Gran Abs Auto 0.02 X10*3/uL (0.00-0.03); Imm Gran Pct Auto 0.3 % (0.0-0.4); Lymphocytes Absolute Auto 1.5 X10*3/uL (1.2-4.9); Mean Corpuscular Hemoglobin 30.4 pg (27.0-33.0); Mean Corpuscular Volume 92.1 fL (80.0-98.0); Mean Platelet Volume 9.7 fL (9.4-12.4); Monocytes Absolute Auto 0.5 X10*3/uL (0.1-1.2); Monocytes Percent Auto 7.3 % (2-11); Neutrophils Absolute Auto 4.6 x10*3/uL (2.0-8.3); Neutrophils Percent Auto 66.6 % (45-73); Platelet Count 292 X10*3/uL (160-400); Red Cell Distribution Width 13.1 % (11.0-16.0); White Blood Count 6.9 X10*3/uL (4.8-10.8)
[2024-04-21 13:29] LABS: Alanine Aminotransferase 15 U/L (0-40); Albumin Level 4.5 g/dL (3.5-5.0); Alkaline Phosphatase 77 U/L (39-117); Anion Gap 15 (12-20); Aspartate Amino Transferase 23 U/L (5-37); Bilirubin Direct 0.3 mg/dL (0.0-0.5); Bilirubin Total 0.8 mg/dL (0.0-1.0); Blood Urea Nitrogen 12 mg/dL (9-16); Calcium 9.9 mg/dL (8.4-10.2); Carbon Dioxide 24 mmol/L (22-29); Chloride 105 mmol/L (96-108); Estimated Glomerular Filt Rate > 60; Glucose Random 95 mg/dL (60-115); Potassium 4.9 mmol/L (3.3-5.1); Sodium 139 mmol/L (135-145); Total Protein 7.1 g/dL (6.5-8.0)
[2024-04-22 08:14] LABS: HIV AB/AG Nonreactive (Nonreactive); HIV Num 1 0.05 S/CO (0.00-0.99)
== END 2024-04-21 11:33 | disposition home or self-care (01) ==
LOC: HO.LAB 11:32
PROVIDERS: Visit Provider Nurse Practitioner Psychiatric/Mental Health
DX: F11.20 Opioid dependence, uncomplicated (principal); Z79.899 Other long term (current) drug therapy
CPT/HCPCS: 36415; 80053; 82248; 85025; 87389; 99212

== ENCOUNTER → 2024-04-26 16:27 | Outpatient (BNVA) | payer MEDICAID, SELFPAY | DX: Z79.899 Other long term (current) drug therapy (principal) ==

== ENCOUNTER 2024-05-12 13:32 | Outpatient (AMB) | payer MEDICAID, SELFPAY ==
--- NOTE | 2024-05-12 13:37 | A.OFFVISCC_ITS ---
Intake Visit Reasons: MAT Office Allergies No Known Allergies [No Known Allergies*] Allergy (Verified 02/18/24 01:13) HPI HPI MAT Office: Details: Patient presents for OUD treatment follow up Has been taking suboxone BID with regularity notes a decrease in thoughts of using since taking scheduled still working, doing podcasat working to include meditation more regularly into his daily routine [facility] Medical History ADHD Family History Mother Diabetes Alcohol abuse Father Stroke Social History Household Members Other:: partner Housing: Apartment Alcohol intake: never Patient Tobacco Use Status: Former Tobacco user Substance Use Type: Marijuana Review of Systems Const Reports as per HPI and Reports no additional complaints Physical Exam Const General: cooperative and no acute distress Psych Appearance: grossly normal Mental Status: mental status grossly normal Speech and movement: Normal speech and movement present Affect: normal affect Attitude: cooperative Thought process: Normal thought process present Assessment & Plan Assessment & Plan (1) Opioid use disorder: Code(s): F11.99 - Opioid use, unspecified with unspecified opioid-induced disorder Category: Medical Plan: * continue suboxone at current dose * overdose prevention discussion
== END 2024-05-12 14:24 | disposition home or self-care (01) ==
PROVIDERS: Visit Provider Nurse Practitioner Psychiatric/Mental Health
DX: F11.99 Opioid use, unspecified with unspecified opioid-induced disorder (principal)
CPT/HCPCS: 99213

== ENCOUNTER → 2024-05-12 13:32 | Outpatient (BNVA) | payer MEDICAID, SELFPAY | PROVIDERS: Visit Provider Nurse Practitioner Psychiatric/Mental Health | DX: F11.20 Opioid dependence, uncomplicated (principal) | CPT/HCPCS: 99212 ==

== ENCOUNTER 2024-05-25 15:56 | Outpatient (AMB) | payer MEDICAID, SELFPAY ==
--- NOTE | 2024-06-01 16:37 | A.OFFVISCC_ITS ---
Intake Visit Reasons: MAT Office Allergies No Known Allergies [No Known Allergies*] Allergy (Verified 02/18/24 01:13) HPI HPI MAT Office: Details: Pt presents for OUD treatment follow up Currently being prescribed Suboxone 2mg BID Denies any side effects related to medication Reporting brief recurrence of use --2 days. Processing triggers open to increasing dose of buprenorphine PFSH Medical History ADHD Family History Mother Diabetes Alcohol abuse Father Stroke Social History Household Members Other:: partner Housing: Apartment Alcohol intake: never Patient Tobacco Use Status: Former Tobacco user Substance Use Type: Marijuana Review of Systems Const Reports as per HPI and Reports no additional complaints Physical Exam Const General: cooperative and no acute distress Psych Appearance: grossly normal Mental Status: mental status grossly normal Speech and movement: Normal speech and movement present Affect: normal affect Attitude: cooperative Thought process: Normal thought process present Assessment & Plan Assessment & Plan (1) Opioid use disorder: Code(s): F11.99 - Opioid use, unspecified with unspecified opioid-induced disorder Category: Medical Plan: * increase dose to 8mg daily * follow up one week * overdose prevention discussion Medications: New buprenorphine-naloxone 8-2 mg (Suboxone) 1 film sublingual DAILY 30 ea 0RF
== END 2024-05-25 16:43 | disposition home or self-care (01) ==
PROVIDERS: Visit Provider Nurse Practitioner Psychiatric/Mental Health
DX: F11.99 Opioid use, unspecified with unspecified opioid-induced disorder (principal)
CPT/HCPCS: 99214

== ENCOUNTER → 2024-05-25 15:56 | Outpatient (BNVA) | payer MEDICAID, SELFPAY | PROVIDERS: Visit Provider Nurse Practitioner Psychiatric/Mental Health | DX: F11.99 Opioid use, unspecified with unspecified opioid-induced disorder (principal); Z79.899 Other long term (current) drug therapy | CPT/HCPCS: 99212 ==

== ENCOUNTER 2024-06-01 15:50 | Outpatient (AMB) | payer MEDICAID, SELFPAY ==
--- NOTE | 2024-06-01 16:12 | A.OFFVISCC_ITS ---
Intake Visit Reasons: MAT Office Allergies No Known Allergies [No Known Allergies*] Allergy (Verified 02/18/24 01:13) HPI HPI MAT Office: Details: Patient seen in follow up Reporting a positive week Feels better with increased suboxone dose Cravings much improved, mood improved Having dental pain --nervous to re-establish care [facility] Medical History ADHD Family History Mother Diabetes Alcohol abuse Father Stroke Social History Household Members Other:: partner Housing: Apartment Alcohol intake: never Patient Tobacco Use Status: Former Tobacco user Substance Use Type: Marijuana Review of Systems Const Reports as per HPI and Reports no additional complaints Physical Exam Const General: cooperative, healthy appearing and well groomed Assessment & Plan Assessment & Plan (1) Opioid use disorder: Code(s): F11.99 - Opioid use, unspecified with unspecified opioid-induced disorder Category: Medical Plan: * continue suboxone at current dose * follow up with RN one week * needs assistance with [employer] for fuel assistance and making dentist appt Medications: New polyethylene glycol 3350 17 grams PO DAILY PRN 238 grams 0RF constipation Refilled nicotine (polacrilex) 4 mg buccal Q4-8H PRN 96 ea 3RF nicotine cravings
== END 2024-06-01 16:43 | disposition home or self-care (01) ==
PROVIDERS: Visit Provider Nurse Practitioner Psychiatric/Mental Health
DX: F11.99 Opioid use, unspecified with unspecified opioid-induced disorder (principal)
CPT/HCPCS: 99213

== ENCOUNTER → 2024-06-01 15:50 | Outpatient (BNVA) | payer MEDICAID, SELFPAY | PROVIDERS: Visit Provider Nurse Practitioner Psychiatric/Mental Health | DX: F11.19 Opioid abuse with unspecified opioid-induced disorder (principal) | CPT/HCPCS: 99212 ==

== ENCOUNTER → 2024-06-09 14:56 | Outpatient (BNVA) | payer MEDICAID, SELFPAY | DX: Z79.899 Other long term (current) drug therapy (principal) ==

== ENCOUNTER → 2024-06-16 15:00 | Outpatient (BNVA) | payer MEDICAID, SELFPAY | DX: Z79.899 Other long term (current) drug therapy (principal) ==

== ENCOUNTER 2024-07-06 15:59 | Outpatient (AMB) | payer MEDICAID, SELFPAY ==
--- NOTE | 2024-07-06 16:05 | A.OFFVISCC_ITS ---
Intake Visit Reasons: MAT Allergies No Known Allergies [No Known Allergies*] Allergy (Verified 02/18/24 01:13) HPI HPI MAT: Details: Patient presents for follow up Currently prescribed Suboxone 8mg daily has been taking 2mg consistently --will order as daily and not PRN denies any cravings continues to work and attend therapy PFSH Medical History ADHD Family History Mother Diabetes Alcohol abuse Father Stroke Social History Household Members Other:: partner Housing: Apartment Alcohol intake: never Patient Tobacco Use Status: Former Tobacco user Substance Use Type: Marijuana Review of Systems Const Reports as per HPI and Reports no additional complaints Physical Exam Const General: cooperative, healthy appearing and well groomed Assessment & Plan Assessment & Plan (1) Opioid use disorder: Code(s): F11.99 - Opioid use, unspecified with unspecified opioid-induced disorder Category: Medical Plan: * refilled 2mg films --8 mg not needed yet * relapse prevention discussion * follow up 2 weeks Medications: New nicotine (Nicoderm CQ) 1 patch transdermal DAILY 28 ea 2RF nicotine (polacrilex) 4 mg buccal Q2H PRN 100 ea 0RF nicotine cravings Refilled buprenorphine-naloxone 2-0.5 mg (Suboxone) 1 film buccal DAILY PRN 30 ea 0RF cravings Discontinued nicotine Discontinued Reason: Doctor's Order 1 patch topical DAILY 28 patches 0RF
== END 2024-07-06 16:45 | disposition home or self-care (01) ==
PROVIDERS: Visit Provider Nurse Practitioner Psychiatric/Mental Health
DX: F11.99 Opioid use, unspecified with unspecified opioid-induced disorder (principal)
CPT/HCPCS: 99213

== ENCOUNTER → 2024-07-06 15:59 | Outpatient (BNVA) | payer MEDICAID, SELFPAY | PROVIDERS: Visit Provider Nurse Practitioner Psychiatric/Mental Health | DX: F11.20 Opioid dependence, uncomplicated (principal); Z51.81 Encounter for therapeutic drug level monitoring | CPT/HCPCS: 99212 ==

== ENCOUNTER 2024-08-24 16:01 | Outpatient (AMB) | payer MEDICAID, SELFPAY ==
--- NOTE | 2024-08-24 16:16 | A.OFFVISCC_ITS ---
Intake Visit Reasons: MAT Office Allergies No Known Allergies [No Known Allergies*] Allergy (Verified 02/18/24 01:13) HPI HPI MAT Office: Details: Patient presents for follow up Currently prescribed Subooxne 8mg daily +2mg QD Doing well with recovery, bright affect Started to cut down suboxone for fear he was not going to have insurance coverage Insurance is now reinstated working 6 days per week PFSH Medical History ADHD Family History Mother Diabetes Alcohol abuse Father Stroke Social History Household Members Other:: partner Housing: Apartment Alcohol intake: never Patient Tobacco Use Status: Former Tobacco user Substance Use Type: Marijuana Review of Systems Const Reports as per HPI Physical Exam Const General: cooperative, healthy appearing and well groomed Assessment & Plan Assessment & Plan (1) Opioid use disorder: Code(s): F11.99 - Opioid use, unspecified with unspecified opioid-induced disorder Category: Medical Plan: * continue suboxone at current dose * relapse prevention discussion * refilled nicotine patches Medications: Refilled buprenorphine-naloxone 8-2 mg (Suboxone) 1 film sublingual DAILY 30 ea 0RF buprenorphine-naloxone 2-0.5 mg (Suboxone) 1 film buccal DAILY PRN 30 ea 0RF cravings ibuprofen Take with food. 800 mg PO TID PRN 90 tabs 3RF pain 30 days Discontinued ibuprofen Discontinued Reason: Patient Completed Course 400 mg PO Q6H PRN 20 tabs 0RF pain nicotine (polacrilex) Discontinued Reason: Duplicate 4 mg buccal Q4-8H PRN 96 ea 3RF nicotine cravings
== END 2024-08-24 16:44 | disposition home or self-care (01) ==
LOC: HO.HCC 16:02
PROVIDERS: Visit Provider Nurse Practitioner Psychiatric/Mental Health
DX: F11.99 Opioid use, unspecified with unspecified opioid-induced disorder (principal)
CPT/HCPCS: 99214

== ENCOUNTER → 2024-08-24 16:01 | Outpatient (BNVA) | payer MEDICAID, SELFPAY | PROVIDERS: Visit Provider Nurse Practitioner Psychiatric/Mental Health | DX: F11.99 Opioid use, unspecified with unspecified opioid-induced disorder (principal); Z51.81 Encounter for therapeutic drug level monitoring | CPT/HCPCS: 99212 ==

== ENCOUNTER 2024-09-13 17:47 | Emergency (ER) | payer OTHER, SELFPAY | END 2024-09-13 20:05 | disposition left against medical advice (07) | PROVIDERS: Emergency Provider Emergency Medicine Emergency Medical Services | DX: K08.89 Other specified disorders of teeth and supporting structures (principal); Z53.21 Procedure and treatment not carried out due to patient leaving prior to being seen by health care provider ==

== ENCOUNTER 2024-09-16 13:50 | Emergency (ER) | payer OTHER, SELFPAY ==
[2024-09-16 14:12] VITALS: BP 113/69; PULSE 72; RESP 16; TEMP 36.9; O2SAT 96; BMI 21.1
--- NOTE | 2024-09-16 14:19 | ED_ITS ---
HPI - General Adult General Chief complaint: Dental/Oral Stated complaint: lump in gums Time Seen by Provider: 09/16/24 14:15 Source: patient, RN notes reviewed and old records reviewed Mode of arrival: ambulatory Limitations: no limitations History of Present Illness ED Provider: Yolanda ALEXANDER narrative: 34-year-old male presents for evaluation of a lump to the left side of his jaw. he reports that he 1st noticed it a few days ago. He has no significant pain. He does have multiple dental issues and broken teeth in the area but denies any recent dental fracture. He is concerned that he may have an abscess. No fevers or chills Related Data Previous Rx's ?Medication ?Instructions ?Recorded multivitamin with iron 1 tab PO DAILY #30 tabs 06/02/23 ondansetron 4 mg disintegrating 4 mg PO Q8H PRN nausea and 01/02/24 tablet vomiting #10 tabs cyclobenzaprine 5 mg tablet 5 mg PO BID PRN muscle spasm #30 04/21/24 tabs polyethylene glycol 3350 17 17 g PO DAILY PRN constipation 06/01/24 gram/dose oral powder #238 grams nicotine (polacrilex) 4 mg gum 4 mg buccal Q2H PRN nicotine 07/06/24 cravings #100 ea nicotine 14 mg/24 hr daily 1 patch transdermal DAILY #28 ea 07/06/24 transdermal patch (Nicoderm CQ) ibuprofen 800 mg tablet 800 mg PO TID PRN pain 30 days #90 08/24/24 tabs buprenorphine 2 mg-naloxone 0.5 mg 1 film buccal DAILY PRN cravings 08/25/24 sublingual film (Suboxone) #30 ea buprenorphine 8 mg-naloxone 2 mg 1 film sublingual DAILY #30 ea 08/25/24 sublingual film (Suboxone) amoxicillin 875 mg-potassium 1 tab PO Q12H #14 tabs 09/16/24 clavulanate 125 mg tablet Allergies Allergy/AdvReac Type Severity Reaction Status Date / Time No Known Allergies Allergy Verified 09/16/24 14:15 [No Known Allergies*] Review of Systems Constitutional: Constitutional: Denies chills and Denies fever(s) ENT: Denies dry mouth and Denies otalgia PMFSH Past Medical History Medical History ADHD Family History Family History Mother Diabetes Alcohol abuse Father Stroke Social History Social History Household Members Other:: partner Housing: Apartment Alcohol intake: never Patient Tobacco Use Status: Former Tobacco user Substance Use Type: Marijuana Advance Directives: No Advance Directives Information Provided: Yes Do you have a plan to hurt others: No Plan Physical Exam ED Vital Signs: Vital Signs - 24 hr 09/16/24 14:12 Temperature 98.4 F Pulse Rate 72 Respiratory Rate 16 Blood Pressure 113/69 Pulse Oximetry 96 Oxygen Delivery Method Room Air BMI result Body Mass Index 21.1 Const General: healthy appearing, comfortable, no acute distress, alert and awake Nutritional Appearance: well nourished Orientation/consciousness: patient oriented x3 HENMT Other: multiple dental caries with dental fracture. Head: Yes normocephalic and Yes atraumatic Eyes Eyelids: Yes eyelids normal Conjunctivae: conjunctivae normal Sclerae: sclerae normal Corneas: corneas normal Pupils: Equal, round and reactive pupils present EOM: EOMs intact bilaterally Neck Other: Positive left-sided anterior cervical lymphadenopathy Neck: Yes full ROM Resp Effort & Inspection: normal respiratory effort, able to speak in complete sentences and not labored Skin General skin exam: elasticity normal Neuro General: patient oriented x3 Cranial nerves: Yes Equal, round and reactive pupils present and Yes Bilaterally intact EOM present Cognition (Neuro): normal cognition Extrem Other: Moving all extremities well without any obvious deformities Medical Decision Making Medical Decision Making MDM Narrative: 34-year-old male presents for evaluation of a small lump to left side of his mouth, he has no obvious abscess, he has multiple dental caries and positive lymphadenopathy, likely developing dental infection. We will treat with Augmentin b.i.d. x1 week. Differential Diagnosis Differential Diagnoses: The differential diagnosis associated with the presentation includes Dental caries Dental abscess Gingivitis Dental fracture Discharge Plan Discharge Clinical Impression: Dental caries Patient Disposition: Home, Self-Care Instructions: Toothache (ED) Additional Instructions: take the antibiotic twice daily for 1 week. Follow-up with your dentist. You may also apply warm compresses if you develop any further swelling or pain Prescriptions: New amoxicillin-pot clavulanate 875-125 mg tablet 1 tab PO Q12H Qty: 14 0RF No Action multivitamin with iron Tablet 1 tab PO DAILY Qty: 30 0RF buprenorphine-naloxone [Suboxone] 2-0.5 mg film 1 film buccal DAILY PRN (Reason: cravings) Qty: 30 0RF buprenorphine-naloxone [Suboxone] 8-2 mg film 1 film sublingual DAILY Qty: 30 0RF ondansetron 4 mg tablet,disintegrating 4 mg PO Q8H PRN (Reason: nausea and vomiting) Qty: 10 0RF polyethylene glycol 3350 17 gram/dose powder 17 g PO DAILY PRN (Reason: constipation) Qty: 238 0RF nicotine [Nicoderm CQ] 14 mg/24 hr patch 24 hour 1 patch transdermal DAILY Qty: 28 2RF nicotine (polacrilex) 4 mg gum 4 mg buccal Q2H PRN (Reason: nicotine cravings) Qty: 100 0RF ibuprofen 800 mg tablet 800 mg PO TID PRN (Reason: pain) 30 Days Qty: 90 3RF Rx Instructions: Take with food. cyclobenzaprine 5 mg tablet 5 mg PO BID PRN (Reason: muscle spasm) Qty: 30 0RF Print Language: Divehi
== END 2024-09-16 14:25 | disposition home or self-care (01) ==
PROVIDERS: Emergency Provider Emergency Medicine; PCP Physician Assistant
DX: K02.9 Dental caries, unspecified (principal)
CPT/HCPCS: 99281

== ENCOUNTER 2024-10-12 16:04 | Outpatient (AMB) | payer MEDICAID, SELFPAY ==
--- NOTE | 2024-10-12 16:09 | A.OFFVISCC_ITS ---
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 about a year --enjoys the routine of this job Still having issues with insurance completed abx --still needs to see dentist Review of Systems Const Reports as per HPI and Reports no additional complaints Physical Exam Const General: cooperative, healthy appearing and well groomed Psych Speech and movement: Normal speech and movement present Affect: normal affect Attitude: cooperative Thought process: Normal thought process present Thought content: Normal thought content present Insight: Good insight present (Psych) Judgement: Good judgement present (Psych) Assessment & Plan Assessment & Plan (1) Opioid use disorder: Code(s): F11.99 - Opioid use, unspecified with unspecified opioid-induced disorder Category: Medical Plan: * continue suboxone at current dose * relapse prevention discussion * follow up 2 weeks [facility] Medical History ADHD Family History Mother Diabetes Alcohol abuse Father Stroke Social History Household Members Other:: partner Housing: Apartment Alcohol intake: never Patient Tobacco Use Status: Former Tobacco user Substance Use Type: Marijuana
== END 2024-10-12 16:33 | disposition home or self-care (01) ==
PROVIDERS: PCP Physician Assistant; Visit Provider Nurse Practitioner Psychiatric/Mental Health
DX: F11.99 Opioid use, unspecified with unspecified opioid-induced disorder (principal)
CPT/HCPCS: 99213

== ENCOUNTER → 2024-10-12 16:04 | Outpatient (BNVA) | payer OTHER, SELFPAY | PROVIDERS: PCP Physician Assistant; Visit Provider Nurse Practitioner Psychiatric/Mental Health | DX: F11.20 Opioid dependence, uncomplicated (principal) | CPT/HCPCS: 99212 ==

== ENCOUNTER 2024-11-21 16:18 | Outpatient (AMB) | payer SELFPAY ==
[2024-11-21 16:23] VITALS: BP 100/50; PULSE 78; RESP 19; O2SAT 98
--- NOTE | 2024-11-21 16:23 | A.OFFVISCC_ITS ---
Vital Signs 11/21/24 16:23 BP 100/50 L Blood Pressure Location Rt brachial Position Sitting Respiration 19 Pulse 78 Pulse Source Pulse Oximeter Pulse Oximetry (%) 98 Oxygen Delivery Method Room Air Intake Visit Reasons: MAT Office Allergies No Known Allergies [No Known Allergies*] Allergy (Verified 09/16/24 14:15) HPI HPI MAT Office: Details: Patient presents as walk in for follow up Reports he is doing well with recovery Currently prescribed Suboxone 8-10mg daily Reports he is more regularly taking 4mg daily stopped marijuana last week got a raise at work last week feels good about where things are Review of Systems Const Reports as per HPI and Reports no additional complaints Physical Exam Vital Signs: Last Vital Signs Pulse 78 11/21/24 16:23 Resp 19 11/21/24 16:23 BP 100/50 L 11/21/24 16:23 Pulse Ox 98 11/21/24 16:23 Oxygen Delivery Method Room Air 11/21/24 16:23 Const General: cooperative, healthy appearing and well groomed Psych Speech and movement: Normal speech and movement present Affect: normal affect Attitude: cooperative Thought process: Normal thought process present Thought content: Normal thought content present Insight: Good insight present (Psych) Judgement: Good judgement present (Psych) PFSH Medical History ADHD Family History Mother Diabetes Alcohol abuse Father Stroke Social History Household Members Other:: partner Housing: Apartment Alcohol intake: never Patient Tobacco Use Status: Former Tobacco user Substance Use Type: Marijuana Assessment & Plan Assessment & Plan (1) Opioid use disorder: Code(s): F11.99 - Opioid use, unspecified with unspecified opioid-induced disorder Category: Medical Plan: * continue suboxone at current dose * relapse prevention discussion * follow up 4 weeks Medications: Refilled buprenorphine-naloxone 8-2 mg (Suboxone) 1 film sublingual DAILY 30 ea 0RF buprenorphine-naloxone 2-0.5 mg (Suboxone) 1 film buccal DAILY PRN 30 ea 0RF cravings
--- OUTSIDE RECORDS SUMMARY | 2024-11-21 19:50 | XMS_ITS | Data Portability ---
Author Organization [facility] Service Address [address] [place] [address] Assessment No assessment recorded. Plan of Treatment Reminders Order Date Submit Date Provider Last Modified By Organization Details Last Modified Time Details Appointments None recorded. Lab None recorded. Referral None recorded. Procedures None recorded. Surgeries None recorded. Imaging None recorded. Medication Orders ondansetron HCl 8 mg tablet 2018 019 [id number], [address], [place], [id number], 9 15:27:20 Patient TargetsNo targets recorded. Patient Instructions Encounter Date Encounter Id Patient Instructions Last Modified By Organization Details Last Modified Time 04/05/2019 hepatitis C: car e instructions Not available 04/05/2019 15:01:51 learning about hepatitis C Not available 04/05/2019 15:01:51 04/15/2019 [id number] hepatitis C: car e instructions Not available 04/15/2019 10:43:12 learning about hepatitis C Not available 04/15/2019 10:43:12 05/20/2019 [id number] hepatitis C: car e instructions Not available 05/20/2019 16:05:26 learning about hepatitis C Not available 05/20/2019 16:05:26 05/24/2019 [id number] hepatitis C: car e instructions Not available 05/24/2019 16:01:01 learning about hepatitis C Not available 05/24/2019 16:01:01 Reason for Referral None Reported. Results Created Date Observation Date Name Description Value Unit Range Abnormal Flag Note LastModifiedBy Organization Detail LastModifiedTime Result Notes None recorded. Problems Name Problem SNOMED Code Status Onset Date Resolution Date Notes Provider Name and Address Organization Details Recorded Time Viral hepatitis C 37870271 Active 2018 Harpreet HalimaFay Herrera, DO [address] [facility], [place], [address], [facility] 9 10:42:05 Problem Notes None recorded. Medical Equipment None Reported. Allergies No known drug allergies Medications Name Sig Start Date Stop Date Status Note LastModified by Organization Details LastModified Time ondansetron HCl 8 mg tablet Take 1 tablet every 8 hours by oral route as needed for 2 days. 05/20 completed Not Available Not Available Not Available Suboxone 8 mg-[address] 1 film every day by sublingua l route. 04/05 completed Not Available Not Available Not Available Vitals Date Recorded Body weight Heart rate Oxygen saturation Oxygen saturation in Arterial blood by Pulse oximetry Systolic blood pressure Diastolic blood pressure Provider Name and Address Organization Details Last Updated DateTime 9 62088.2 8 g 85 /min 97 % 97 % 128 mm[Hg] 80 mm[Hg] Victoria Fagan [facility] 9 14:31:38 Date Recorded Body weight Body mass index (BMI) Body height Heart rate Oxygen saturation Oxygen saturation in Arterial blood by Pulse oximetry Systolic blood pressure Diastolic blood pressure Provider Name and Address Organization Details Last Updated DateTime 9 60328.4 2 g 23.4 kg/m2 175.9 cm 72 /min 98 % 98 % 100 mm[Hg] 72 mm[Hg] Cara Edmonds [facility] 9 10:19:58 Date Recorded Body height Body mass index (BMI) Body weight Heart rate Oxygen saturation Oxygen saturation in Arterial blood by Pulse oximetry Systolic blood pressure Diastolic blood pressure Provider Name and Address Organization Details Last Updated DateTime 9 175.9 cm 23 kg/m2 12766.5 7 g 90 /min 94 % 94 % 122 mm[Hg] 70 mm[Hg] Victoria Fagan [facility] 9 15:28:07 Date Recorded Body height Heart rate Oxygen saturation Oxygen saturation in Arterial blood by Pulse oximetry Systolic blood pressure Diastolic blood pressure Provider Name and Address Organization Details Last Updated DateTime 9 175.9 cm 82 /min 96 % 96 % 100 mm[Hg] 60 mm[Hg] Harpreet Herrera DO [address] [place], [address], [facility] 9 15:36:40 Social History Question Answer Notes LastModified by Organizat ion Details LastModified Time Tobacco Smoking Status Current Every Day Smoker / ppd Victoria bernal [facility] 04/05/2019 14:30:52 What Was The Date Of Your Most Recent Tobacco Screening? 04/15/2019 Information not available 05/19/2019 Sex: Unknown Functional Status None recorded. Mental Status None recorded. Family History Nothing Reported. Medical History No medical history recorded. Immunizations Vaccine Type Date Status Note Provider Nam e and Address Organization Details Recorded Time Tdap 02/23/2013 completed Victoria Fagan dolores [facility] 04/04/2019 15:06:46 Past Encounters Encounter ID Performer Location Encounter Start Date Encounter Closed Date Diagnosis/Indication Diagnosis SNOMED-CT Code Diagnosis ICD10 Code Diagnosis Note [id number] Harpreet Herrera DO [address], [place] [address] 04/05/2019 14:17:11 04/05/2019 15:08:51 Viral hepatitis C 32187028 B19.20 await referral to [facility] and whereupon he will need to be treated for the hepatitis Opioid dependence 128380 00 F11.20 subox per pt from other source will need to get lab from GI as soon as avail [id number] Harpreet Herrera DO [facility] [address], [place] [address] 04/15/2019 10:15:55 04/15/2019 10:49:31 Viral hepatitis C 03788138 B19.20 await insurance and referral to [facility] and whereupon he will need to be treated for the hepatitis april 25 will have insurance and we [place] [id number] Harpreet Herrera DO [facility] [address] [address] 05/20/2019 15:21:39 05/20/2019 16:11:20 Viral hepatitis C 80323159 B19.20 await insurance and referral to [facility] and whereupon he will need to be treated for the hepatitis april 25 will have insurance and we [place] [id number] Harpreet Herrera DO [facility] [address] [facility],[address] [address] 05/24/2019 15:33:40 05/24/2019 16:06:38 Viral hepatitis C 22438787 B19.20 await insurance and referral to [facility] and whereupon he will need to be treated for the hepatitis april 25 will have insurance and we will then get him establishe d with Hep c tx Health Concerns Section Related Observation LastModified by Organization Detai ls LastModified Time None Recorded Concern Status LastModified by Organization Details LastModified Time None Recorded Advance Directives Directive None Recorded Payers Encounter Date Sequence Insurance Name Policy Number Policy Ochoa Covered Member ID Ochoa Member ID Guarantor Name 04/15/2019 SLIDING FEE SCHEDULE - DISCOUNT Jeffery Cardenas Fiato 05/20/2019 1 [facility] [id number] Jeffery Cardenas Fiato [id number] Jeffery Cardenas Fiato 05/24/2019 1 [facility] ([place]) [id number] Jeffery Cardenas Fiato [id number] Jeffery Ling Notes Date Note Type Note Provider Name a nh Address Organization Details Recorded Time 04/05/2019 text/html HERE FOR YAIMA relates has been feeling lousy and not doing well with his abdominal pain was on suboxone and this was stopped due to prob with elevated liver tests so hes stuck wherupepon he was weaning off subox but now with elevated lfts he needs to come off sooner buit we need to prevnt withdrawal Harpreet Herrera, [address] [place], [address], [facility] 04/05/2019 15:02:14 04/15/2019 text/html here for rechk overall is feeling better states is starting eat better now relates has stayed clean is no longer vomiting abdom pain is gone Harpreet Herrera DO [address] [place], [address], [facility] 04/15/2019 10:43:32 05/20/2019 text/html here for yaima a masoud states is doing ok overall and is looking to change jobs relates his abdomen has been sore and irritated at times not as bad as in past Harpreet Herrera DO [address] [place], [address], [facility] 05/20/2019 16:06:47 05/24/2019 text/html reviewed and had comprehensive care program is now going to be providing a specialist of liver on 02 june for hep c tx re;lates is feeling better and states he is sleeping better has a good counselor in [place] harpreet oleary discussion re a prior head injury years ago Harpreet Herrera DO [address] [place], [address], [facility] 05/24/2019 16:01:03
== END 2024-11-21 17:09 | disposition home or self-care (01) ==
PROVIDERS: PCP Physician Assistant; Visit Provider Nurse Practitioner Psychiatric/Mental Health
DX: F11.99 Opioid use, unspecified with unspecified opioid-induced disorder (principal)
CPT/HCPCS: 99213

== ENCOUNTER → 2024-11-21 16:18 | Outpatient (BNVA) | payer SELFPAY | PROVIDERS: PCP Physician Assistant; Visit Provider Nurse Practitioner Psychiatric/Mental Health | DX: F11.20 Opioid dependence, uncomplicated (principal) | CPT/HCPCS: 99212 ==

== ENCOUNTER 2024-12-19 16:01 | Outpatient (AMB) | payer MEDICAID, SELFPAY ==
--- NOTE | 2024-12-19 16:22 | A.OFFVISCC_ITS ---
Intake Visit Reasons: MAT Office Allergies No Known Allergies [No Known Allergies*] Allergy (Verified 09/16/24 14:15) Medication List - Last Reconciled 12/19/24 by Ashleigh Villasenor CNP buprenorphine-naloxone 2-0.5 mg (Suboxone) 1 film buccal DAILY PRN buprenorphine-naloxone 8-2 mg (Suboxone) 1 film sublingual DAILY ibuprofen 800 mg PO TID PRN 30 days multivitamin with iron 1 tab PO DAILY nicotine (Nicoderm CQ) 1 patch transdermal DAILY polyethylene glycol 3350 17 grams PO DAILY PRN HPI HPI MAT Office: Details: Patient presents for follow up Currently prescribed Suboxone 10mg QD Tolerating current dose Doing well overall with recovery, still working and spending time with friends Engaged in therapy Review of Systems Const Reports as per HPI and Reports no additional complaints Physical Exam Const General: cooperative, healthy appearing and well groomed Psych Speech and movement: Normal speech and movement present Affect: normal affect Attitude: cooperative Thought process: Normal thought process present Thought content: Normal thought content present Insight: Good insight present (Psych) Judgement: Good judgement present (Psych) [facility] Medical History ADHD Family History Mother Diabetes Alcohol abuse Father Stroke Social History Household Members Other:: partner Housing: Apartment Alcohol intake: never Patient Tobacco Use Status: Former Tobacco user Substance Use Type: Marijuana Assessment & Plan Assessment & Plan (1) Opioid use disorder: Code(s): F11.99 - Opioid use, unspecified with unspecified opioid-induced disorder Category: Medical Plan: * continue suboxone at current dose * relapse prevention discussion * follow up 3 weeks Medications: Refilled buprenorphine-naloxone 2-0.5 mg (Suboxone) 1 film buccal DAILY PRN 30 ea 1RF cravings nicotine (Nicoderm CQ) 1 patch transdermal DAILY 28 ea 2RF buprenorphine-naloxone 8-2 mg (Suboxone) 1 film sublingual DAILY 30 ea 1RF
--- OUTSIDE RECORDS SUMMARY | 2024-12-19 18:11 | XMS_ITS | Data Portability ---
Author Organization [facility] Service Address [address] [place] [address] Assessment No assessment recorded. Plan of Treatment Reminders Order Date Submit Date Provider Last Modified By Organization Details Last Modified Time Details Appointments None recorded. Lab None recorded. Referral None recorded. Procedures None recorded. Surgeries None recorded. Imaging None recorded. Medication Orders ondansetron HCl 8 mg tablet 2018 019 [facility][id number], [address] [place], [place], [id number], 9 15:27:20 Patient TargetsNo targets recorded. Patient Instructions Encounter Date Encounter Id Patient Instructions Last Modified By Organization Details Last Modified Time 04/05/2019 hepatitis C: car e instructions Not available 04/05/2019 15:01:51 learning about hepatitis C Not available 04/05/2019 15:01:51 04/15/2019 [id number] hepatitis C: car e instructions Not available 04/15/2019 10:43:12 learning about hepatitis C Not available 04/15/2019 10:43:12 05/20/2019 [id number] hepatitis C: car e instructions Not available 05/20/2019 16:05:26 learning about hepatitis C Not available 05/20/2019 16:05:26 05/24/2019 [id number] hepatitis C: car e instructions Not available [...] Organization Details Recorded Time Viral hepatitis C 43476305 Active 2018 Harpreet HalimaFay Herrera, DO [address] [facility], [place], [address], [facility] 9 10:42:05 Problem Notes None [...] Address Organization Details Last Updated DateTime 9 72216.2 8 g 85 /min 97 % 97 % 128 mm[Hg] 80 mm[Hg] Victoria Fagan [facility] 9 14:31:38 Date Recorded Body weight Body mass index (BMI) Body height Heart rate Oxygen saturation Oxygen saturation in Arterial blood by Pulse oximetry Systolic blood pressure Diastolic blood pressure Provider Name and Address Organization Details Last Updated DateTime 9 27258.4 2 g 23.4 kg/m2 175.9 cm 72 /min 98 % 98 % 100 mm[Hg] 72 mm[Hg] Cara Edmonds [facility] 9 10:19:58 Date Recorded Body height Body mass index (BMI) Body weight Heart rate Oxygen saturation Oxygen saturation in Arterial blood by Pulse oximetry Systolic blood pressure Diastolic blood pressure Provider Name and Address Organization Details Last Updated DateTime 9 175.9 cm 23 kg/m2 45864.5 7 g 90 /min 94 % 94 % 122 mm[Hg] 70 mm[Hg] Victoria Fagan [facility] 9 15:28:07 Date Recorded Body height Heart rate Oxygen saturation Oxygen saturation in Arterial blood by Pulse oximetry Systolic blood pressure Diastolic blood pressure Provider Name and Address Organization Details Last Updated DateTime 9 175.9 cm 82 /min 96 % 96 % 100 mm[Hg] 60 mm[Hg] Harpreet Herrera DO [address] [place], [address], [facility] 9 15:36:40 Social History Question Answer Notes LastModified by Organizat ion Details LastModified Time Tobacco Smoking Status Current Every Day Smoker / ppd Victoria bernal [facility] 04/05/2019 14:30:52 What Was The Date Of Your Most Recent Tobacco Screening? 04/15/2019 Information not available 05/19/2019 Sex: Unknown Functional Status None recorded. Mental Status None recorded. Family History Nothing Reported. Medical History No medical history recorded. Immunizations Vaccine Type Date Status Note Provider Nam e and Address Organization Details Recorded Time Tdap 02/23/2013 completed Victoria Fagan dolores [facility] 04/04/2019 15:06:46 Past Encounters Encounter ID Performer Location Encounter Start Date Encounter Closed Date Diagnosis/Indication Diagnosis SNOMED-CT Code Diagnosis ICD10 Code Diagnosis Note [id number] Harpreet Herrera DO [address], [place] [address] 04/05/2019 14:17:11 04/05/2019 15:08:51 Viral hepatitis C 50204577 B19.20 await referral to [facility] and whereupon he will need to be treated for the hepatitis Opioid dependence 867158 00 F11.20 subox per pt from other source will need to get lab from GI as soon as avail [id number] Harpreet Herrera DO [facility] [address], [place] [address] 04/15/2019 10:15:55 04/15/2019 10:49:31 Viral hepatitis C 34807973 B19.20 await insurance and referral to [facility] and whereupon he will need to be treated for the hepatitis april 25 will have insurance and we [place] [id number] Harpreet Herrera DO [facility] [address] [address] 05/20/2019 15:21:39 05/20/2019 16:11:20 Viral hepatitis C 14784426 B19.20 await insurance and referral to [facility] and whereupon he will need to be treated for the hepatitis april 25 will have insurance and we will then [place] [id number] Harpreet Herrera DO [facility] [address] [facility],[place] [address] 05/24/2019 15:33:40 05/24/2019 16:06:38 Viral hepatitis C 65103356 B19.20 await insurance and referral to [facility] [...] - DISCOUNT Jeffery Cardenas Fiato 05/20/2019 1 [facility] ([facility] [id number] Jeffery Cardenas Fiato [id number] Jeffery Cardenas Fiato 05/24/2019 1 [facility] (O) [id number] Jeffery Cardenas Fiato [id number] Jeffery Ling Notes Date Note Type Note Provider Name a pa Address Organization Details Recorded Time 04/05/2019 text/html [...] need to prevnt withdrawal Harpreet Herrera, [address] [place], [address], [facility] 04/05/2019 15:02:14 04/15/2019 text/html here for rechk overall is feeling better states is starting eat better now relates has stayed clean is no longer vomiting abdom pain is gone Harpreet Herrera DO [address] [place], [address], [facility] 04/15/2019 10:43:32 05/20/2019 text/html here for yaima a masoud states is doing ok overall and is looking to change jobs relates his abdomen has been sore and irritated at times not as bad as in past Harpreet Herrera DO [address] [place], [address], [facility] 05/20/2019 16:06:47 05/24/2019 text/html reviewed and had comprehensive care program is now going to be providing a specialist of liver on 02 june for hep c tx re;lates is feeling better and states he is sleeping better has a good counselor in [place] harpreet oleary discussion re a prior head injury years ago Harpreet Herrera DO [address] [place], [address], [facility] 05/24/2019 16:01:03
== END 2024-12-19 16:25 | disposition home or self-care (01) ==
PROVIDERS: PCP Physician Assistant; Visit Provider Nurse Practitioner Psychiatric/Mental Health
DX: F11.99 Opioid use, unspecified with unspecified opioid-induced disorder (principal)
CPT/HCPCS: 99213

== ENCOUNTER → 2024-12-19 16:01 | Outpatient (BNVA) | payer MEDICAID, SELFPAY | PROVIDERS: PCP Physician Assistant; Visit Provider Nurse Practitioner Psychiatric/Mental Health | DX: F11.29 Opioid dependence with unspecified opioid-induced disorder (principal) | CPT/HCPCS: 99212 ==

== ENCOUNTER 2025-01-09 16:00 | Outpatient (AMB) | payer MEDICAID, SELFPAY ==
--- NOTE | 2025-01-09 16:04 | A.OFFVISCC_ITS ---
Intake Visit Reasons: MAT Office Allergies No Known Allergies [No Known Allergies*] Allergy (Verified 09/16/24 14:15) HPI HPI MAT Office: Details: Patient presents for follow up Currently prescribed Reports difficulty getting prescription due to insurance Paid out of pocket Taking btwn 4-8mg daily with occasional 2mg PRN Sleep is great Appetite is great Still working has not seen Joaquin (therapist) for several months Review of Systems Const Reports as per HPI Physical Exam Const General: cooperative, healthy appearing and well groomed Psych Speech and movement: Normal speech and movement present Affect: normal affect Attitude: cooperative Thought process: Normal thought process present Thought content: Normal thought content present Insight: Good insight present (Psych) Judgement: Good judgement present (Psych) PFSH Medical History ADHD Family History Mother Diabetes Alcohol abuse Father Stroke Social History Household Members Other:: partner Housing: Apartment Alcohol intake: never Patient Tobacco Use Status: Former Tobacco user Substance Use Type: Marijuana Assessment & Plan Assessment & Plan (1) Opioid use disorder: Code(s): F11.99 - Opioid use, unspecified with unspecified opioid-induced disorder Category: Medical Plan: * continue suboxone at current dose * relapse prevention discussion * follow up 3 weeks
== END 2025-01-11 09:10 | disposition home or self-care (01) ==
LOC: HO.HCC 16:00
PROVIDERS: PCP Physician Assistant; Visit Provider Nurse Practitioner Psychiatric/Mental Health
DX: F11.99 Opioid use, unspecified with unspecified opioid-induced disorder (principal)
CPT/HCPCS: 99213

== ENCOUNTER → 2025-01-09 16:00 | Outpatient (BNVA) | payer MEDICAID, SELFPAY | PROVIDERS: PCP Physician Assistant; Visit Provider Nurse Practitioner Psychiatric/Mental Health | DX: F11.20 Opioid dependence, uncomplicated (principal); Z79.899 Other long term (current) drug therapy | CPT/HCPCS: 99212 ==

== ENCOUNTER 2025-01-30 15:51 | Outpatient (AMB) | payer MEDICAID, SELFPAY ==
--- NOTE | 2025-01-30 16:02 | MHC.OFFVIS ---
Vital Signs 01/30/25 16:06 Height 5 ft 7 in Weight 156 lb BMI 24.4 Pulse 76 Pulse Source Pulse Oximeter Pulse Oximetry (%) 99 Oxygen Delivery Method Room Air Intake Visit Reasons: mat Allergies No Known Allergies [No Known Allergies*] Allergy (Verified 01/30/25 16:07) HPI HPI mat: Details: He is doing well. He has no complaints. He feels better with slightly more than 8 mg. PFSH Medical History ADHD Family History Mother Diabetes Alcohol abuse Father Stroke Social History Household Members Other:: partner Housing: Apartment Alcohol intake: never Patient Tobacco Use Status: Former Tobacco user Substance Use Type: Marijuana Review of Systems Const All systems reviewed & are unremarkable except as noted in HPI and below Physical Exam Vital Signs: Last Vital Signs Pulse 76 01/30/25 16:06 Pulse Ox 99 01/30/25 16:06 Oxygen Delivery Method Room Air 01/30/25 16:06 BMI result Body Mass Index 24.4 Const General: cooperative Assessment & Plan Assessment & Plan (1) Opioid use disorder: Comment: He needs slightly more than 8 mg Code(s): F11.99 - Opioid use, unspecified with unspecified opioid-induced disorder Category: Medical Plan: Would give slightly more than 8 mg,gave 12/3 daily, one month and one refill. See in two months Check labs. Medications: New buprenorphine-naloxone 12-3 mg (Suboxone) 1 film sublingual Q24H 30 ea 1RF 30 days Coding Level of Care Code Est Pt Level 3 (83059) Diagnoses Opioid use disorder F11.99
[2025-01-30 16:06] VITALS: PULSE 76; O2SAT 99; BMI 24.4
--- OUTSIDE RECORDS SUMMARY | 2025-01-30 18:30 | XMS_ITS | Data Portability ---
Author Organization [facility] Address [address] [place] [address] Assessment No assessment recorded. Plan of Treatment Reminders Order Date Submit Date Provider Last Modified By Organization Details Last Modified Time Details Appointments None recorded. Lab None recorded. Referral None recorded. Procedures None recorded. Surgeries None recorded. Imaging None recorded. Medication Orders ondansetron HCl 8 mg tablet 2018 019 [id number], [address], [place], [id number], 9 15:27:20 Patient TargetsNo targets recorded. Patient Instructions Encounter Date Encounter Id Patient Instructions Last Modified By Organization Details Last Modified Time 04/05/2019 hepatitis C: car e instructions Not available 04/05/2019 15:01:51 learning about hepatitis C Not available 04/05/2019 15:01:51 04/15/2019 [id number] hepatitis C: car e instructions Not available 04/15/2019 10:43:12 learning about hepatitis C Not available 04/15/2019 10:43:12 05/20/2019 [id number] hepatitis C: car e instructions Not available 05/20/2019 16:05:26 learning about hepatitis C Not available 05/20/2019 16:05:26 05/24/2019 [id number] hepatitis C: car e instructions Not available [...] Organization Details Recorded Time Viral hepatitis C [id number] Active 2018 Harpreet HalimaFay Herrera, DO [address] [facility], [place], [address], [facility] 9 10:42:05 Problem Notes None [...] Address Organization Details Last Updated DateTime 9 47668.2 8 g 85 /min 97 % 97 % 128 mm[Hg] 80 mm[Hg] Victoria Fagan [facility] 9 14:31:38 Date Recorded Body weight Body mass index (BMI) Body height Heart rate Oxygen saturation Oxygen saturation in Arterial blood by Pulse oximetry Systolic blood pressure Diastolic blood pressure Provider Name and Address Organization Details Last Updated DateTime 9 16759.4 2 g 23.4 kg/m2 175.9 cm 72 /min 98 % 98 % 100 mm[Hg] 72 mm[Hg] Cara Edmonds [facility] 9 10:19:58 Date Recorded Body height Body mass index (BMI) Body weight Heart rate Oxygen saturation Oxygen saturation in Arterial blood by Pulse oximetry Systolic blood pressure Diastolic blood pressure Provider Name and Address Organization Details Last Updated DateTime 9 175.9 cm 23 kg/m2 36693.5 7 g 90 /min 94 % 94 % 122 mm[Hg] 70 mm[Hg] Victoria Fagan [facility] 9 15:28:07 Date Recorded Body height Heart rate Oxygen saturation Oxygen saturation in Arterial blood by Pulse oximetry Systolic blood pressure Diastolic blood pressure Provider Name and Address Organization Details Last Updated DateTime 9 175.9 cm 82 /min 96 % 96 % 100 mm[Hg] 60 mm[Hg] Harpreet Herrera DO [address] [place], [address], [facility] 9 15:36:40 Social History Question Answer Notes LastModified by Organizat ion Details LastModified Time Tobacco Smoking Status Current Every Day Smoker / ppd Victoria bernal [facility] 04/05/2019 14:30:52 What Was The Date Of Your Most Recent Tobacco Screening? 04/15/2019 Information not available 05/19/2019 Sex: Unknown Functional Status None recorded. Mental Status None recorded. Family History Nothing Reported. Medical History No medical history recorded. Immunizations Vaccine Type Date Status Note Provider Nam e and Address Organization Details Recorded Time Tdap 02/23/2013 completed Victoria Fagan dolores [facility] 04/04/2019 15:06:46 Past Encounters Encounter ID Performer Location Encounter Start Date Encounter Closed Date Diagnosis/Indication Diagnosis SNOMED-CT Code Diagnosis ICD10 Code Diagnosis Note [id number] Harpreet Herrera DO [address], [place] [address] 04/05/2019 14:17:11 04/05/2019 15:08:51 Viral hepatitis C 79068529 B19.20 await referral to [facility] and whereupon he will need to be treated for the hepatitis Opioid dependence 684680 00 F11.20 subox per pt from other source will need to get lab from GI as soon as avail [id number] Harpreet Herrera DO [facility] [address], [place] [address] 04/15/2019 10:15:55 04/15/2019 10:49:31 Viral hepatitis C 98451280 B19.20 await insurance and referral to [facility] and whereupon he will need to be treated for the hepatitis april 25 will have insurance and we [place] [id number] Harpreet Herrera DO [facility] [address] [address] 05/20/2019 15:21:39 05/20/2019 16:11:20 Viral hepatitis C 26346111 B19.20 await insurance and referral to [facility] and whereupon he will need to be treated for the hepatitis april 25 will have insurance and we will [place] [id number] Harpreet Herrera DO [facility] [address] [facility],[place] [address] [facility] [place] [address] 05/24/2019 15:33:40 05/24/2019 16:06:38 Viral hepatitis C 93183214 B19.20 await insurance and referral to [facility] [...] - DISCOUNT Jeffery Cardenas Fiato 05/20/2019 1 [facility] [id number] Jeffery Cardenas Fiato [id number] 00 Jeffery Cardenas Fiato 05/24/2019 1 [facility] ([facility]) [id number] Jeffery Cardenas Fiato [id number] 00 Jeffery Ling Notes Date Note Type Note Provider Name a va Address Organization Details Recorded Time 04/05/2019 text/html [...] need to prevnt withdrawal Harpreet Herrera, [address] [place], [address], [facility] 04/05/2019 15:02:14 04/15/2019 text/html here for rechk overall is feeling better states is starting eat better now relates has stayed clean is no longer vomiting abdom pain is gone Harpreet Herrera DO [address] [place], [address], [facility] 04/15/2019 10:43:32 05/20/2019 text/html here for yaima a masoud states is doing ok overall and is looking to change jobs relates his abdomen has been sore and irritated at times not as bad as in past Harpreet Herrera DO [address] [place], [address], [facility] 05/20/2019 16:06:47 05/24/2019 text/html reviewed and had comprehensive care program is now going to be providing a specialist of liver on 02 june for hep c tx re;lates is feeling better and states he is sleeping better has a good counselor in [place] harpreet oleary discussion re a prior head injury years ago Harpreet Herrera DO [address] [place], [address], [facility] 05/24/2019 16:01:03
== END 2025-01-30 16:40 | disposition home or self-care (01) ==
LOC: HO.HID 15:52
PROVIDERS: PCP Physician Assistant; Visit Provider Internal Medicine
DX: F11.99 Opioid use, unspecified with unspecified opioid-induced disorder (principal)
CPT/HCPCS: 99213

== ENCOUNTER → 2025-01-30 15:51 | Outpatient (BNVA) | payer MEDICAID, SELFPAY | PROVIDERS: PCP Physician Assistant; Visit Provider Internal Medicine | DX: F11.99 Opioid use, unspecified with unspecified opioid-induced disorder (principal); Z51.81 Encounter for therapeutic drug level monitoring | CPT/HCPCS: 99212 ==

== ENCOUNTER 2025-07-04 15:28 | Outpatient (AMB) | payer MEDICAID, SELFPAY ==
[2025-07-04 15:43] VITALS: BP 116/70; BMI 24.0
--- NOTE | 2025-07-04 15:43 | MHC.OFFVIS ---
Vital Signs 07/04/25 15:43 Height 5 ft 7 in Weight 153 lb BMI 24.0 BP 116/70 Intake Visit Reasons: MAT Allergies No Known Allergies (No Known Allergies*) Allergy (Verified 07/04/25 15:44) Medication List - Last Reconciled 07/04/25 by RUDDY Caceres buprenorphine-naloxone 2-0.5 mg (Suboxone) 1 film sublingual BID 30 days HPI Comments Details: A 34-year-old male presents for a follow-up visit r/t VIK in sustained remission with buprenorphine-naloxone 2-0.5 mg BID. Denies opiate use, alcohol, and other substances with the exception of intermittent cigarette and cannabis smoking. 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 [facility] Medical History ADHD Family History Mother Diabetes Alcohol abuse Father Stroke Social History Household Members Other:: partner Housing: Apartment Alcohol intake: never Patient Tobacco Use Status: Former Tobacco user Substance Use Type: Marijuana Physical Exam Vital Signs: Last Vital Signs BP 116/70 07/04/25 15:43 BMI result Body Mass Index 24.0 Results AMB 14 Panel Urine Drug Screen Urine Marijuana (THC) Positive Last Edit by Nelsy Flynn CMA on 07/04/25 15:50 Urine Cocaine Negative Last Edit by Nelsy Flynn CMA on 07/04/25 15:50 Urine Morphine Negative Last Edit by Nelsy Flynn CMA on 07/04/25 15:50 Urine Methamphetamine Negative Last Edit by Nelsy Flynn CMA on 07/04/25 15:50 Urine Amphetamine Negative Last Edit by Nelsy Flynn CMA on 07/04/25 15:50 Urine Benzodiazepine Negative Last Edit by Nelsy Flynn CMA on 07/04/25 15:50 Urine Barbiturates Negative Last Edit by Nelsy Flynn CMA on 07/04/25 15:50 Urine Methadone Negative Last Edit by Nelsy Flynn CMA on 07/04/25 15:50 Urine Buprenorphine Positive Last Edit by Nelsy Flynn, GENA on 07/04/25 15:50 Urine Tricyclic Antidepressant Negative Last Edit by Nelsy Flynn, GENA on 07/04/25 15:50 Urine MDMA Negative Last Edit by Nelsy Flynn, GENA on 07/04/25 15:50 Urine Oxycodone Negative Last Edit by Nelsy Flynn, GENA on 07/04/25 15:50 Urine Phencyclidine Negative Last Edit by Nelsy Flynn, GENA on 07/04/25 15:50 Urine Propoxyphene Negative Last Edit by Nelsy Flynn, GENA on 07/04/25 15:50 Results Reviewed Results Reviewed: Laboratory Last Values POC Urine Buprenorphine Positive 07/04/25 15:45 POC Urine Morphine Negative 07/04/25 15:45 POC Urine Oxycodone Negative 07/04/25 15:45 POC Urine Methadone Negative 07/04/25 15:45 POC Urine Propoxyphene Negative 07/04/25 15:45 POC Urine Barbiturates Negative 07/04/25 15:45 POC U Tricyclic Antidpr Negative 07/04/25 15:45 POC Urine PCP Negative 07/04/25 15:45 POC Ur Amphetamines Negative 07/04/25 15:45 POC Ur Methamphetamine Negative 07/04/25 15:45 POC Urine MDMA Negative 07/04/25 15:45 POC Ur Benzodiazepine Negative 07/04/25 15:45 POC Urine Cocaine Negative 07/04/25 15:45 POC Ur Marijuana (THC) Positive 07/04/25 15:45 Assessment & Plan Assessment & Plan (1) Opioid use disorder in remission: Code(s): F11.91 - Opioid use, unspecified, in remission Category: Medical Plan The plan of care is to continue with buprenorphine-naloxone 2-0.5 mg BID. Education provider regarding risk reduction activities to minimize frequency of cigarettes and cannabis smoking. Follow-up in 2 months or sooner if needed. Orders: Orders AMB 14 Panel Urine Drug Screen Today Z51.81 - Encounter for therapeutic drug level monitoring Medications: Changed From buprenorphine-naloxone 2-0.5 mg (Suboxone) 1 film buccal DAILY PRN 30 ea 1RF cravings To buprenorphine-naloxone 2-0.5 mg (Suboxone) 1 film sublingual BID 30 ea 1RF cravings 30 days Patient Instructions: - Continue with buprenorphine-naloxone as prescribed. - engage in risk reduction activities to minimize frequency of cigarette cannabis smoking. - Follow-up in 2 months or sooner if needed. - Call with questions, concerns, or to report side effects/new onset of symptoms to [facility]. Coding Level of Care Code Est Pt Level 3 (80123) Diagnoses Opioid use disorder in remission F11.91
== END 2025-07-04 15:55 | disposition home or self-care (01) ==
PROVIDERS: PCP Physician Assistant; Visit Provider Clinical Nurse Specialist Psychiatric/Mental Health
DX: F11.91 Opioid use, unspecified, in remission (principal); Z51.81 Encounter for therapeutic drug level monitoring
CPT/HCPCS: 99213

== ENCOUNTER → 2025-07-04 15:28 | Outpatient (BNVA) | payer MEDICAID, SELFPAY | PROVIDERS: PCP Physician Assistant; Visit Provider Clinical Nurse Specialist Psychiatric/Mental Health | DX: F11.91 Opioid use, unspecified, in remission (principal) | CPT/HCPCS: 80307; 99212 ==

== ENCOUNTER 2025-08-31 15:39 | Outpatient (AMB) | payer MEDICAID, SELFPAY ==
[2025-08-31 15:48] VITALS: BP 110/66; PULSE 100; O2SAT 98
--- NOTE | 2025-08-31 15:48 | A.OFFVIS_ITS ---
Vital Signs 08/31/25 15:48 BP 110/66 Pulse 100 Pulse Oximetry (%) 98 Intake Visit Reasons: MAT Allergies No Known Allergies (No Known Allergies*) Allergy (Verified 08/31/25 15:48) HPI Comments Details: A 35-year-old male presents for a follow-up visit r/t VIK in sustained remission with buprenorphine-naloxone 2-0.5 mg BID. Denies opiates, alcohol, and other substances. Acknowledges smoking cigarettes on a daily basis, and interested in staring on nicotine replacement for smoking cessation. Reports will be co ntacting previous mental health therapist to resume services. [facility] Medical History ADHD Family History Mother Diabetes Alcohol abuse Father Stroke Social History Household Members Other:: partner Housing: Apartment Alcohol intake: never Patient Tobacco Use Status: Former Tobacco user Substance Use Type: Marijuana Review of Systems Const All systems reviewed & are unremarkable except as noted in HPI and below Physical Exam Vital Signs: Last Vital Signs Pulse 100 08/31/25 15:48 BP 110/66 08/31/25 15:48 Pulse Ox 98 08/31/25 15:48 Const General: cooperative Assessment & Plan Assessment & Plan (1) Opioid use disorder in remission: Code(s): F11.91 - Opioid use, unspecified, in remission Category: Medical Plan The plan of care is to continue with buprenorphine-naloxone 2-0.5 mg BID and start the nicotine patches per instructions. Follow-up in 2 months or sooner if needed. Medications: New nicotine apply 1-21 mg NICOTINE PATCH daily for 28 days; follow with 1-14 mg PATCH daily for 14 days, then 1-7mg PATCH daily for 14 days transdermal 56 patches 0RF 56 days Refilled buprenorphine-naloxone 2-0.5 mg (Suboxone) 1 film sublingual BID 30 ea 1RF cravings 30 days Patient Instructions: - Continue with buprenorphine-naloxone as prescribed. - Start the nicotine patches per instructions. - Follow up in 2 months or sooner if needed. - Call with questions, concerns, or to report side effects/new onset of symptoms to [facility]. - The patient verbalized understanding and agreed with plan of care. Coding Level of Care Code Est Pt Level 3 (23035) Diagnoses Opioid use disorder in remission F11.91
== END 2025-08-31 15:54 | disposition home or self-care (01) ==
LOC: HO.HCC 15:39
PROVIDERS: PCP Physician Assistant; Visit Provider Clinical Nurse Specialist Psychiatric/Mental Health
DX: F11.91 Opioid use, unspecified, in remission (principal)
CPT/HCPCS: 99213

== ENCOUNTER → 2025-08-31 15:39 | Outpatient (BNVA) | payer MEDICAID, SELFPAY | PROVIDERS: PCP Physician Assistant; Visit Provider Clinical Nurse Specialist Psychiatric/Mental Health | DX: F11.91 Opioid use, unspecified, in remission (principal) | CPT/HCPCS: 99212 ==